=== PATIENT | male | born 1975 | race Caucasian/White ===

== ENCOUNTER 2017-09-18 07:39 | Inpatient (IN) | payer BC ==
[2017-09-18] MEDS ORDERED: SODIUM CHLORIDE 0.9% 500 ML IV STA (08:13)
[2017-09-18] MEDS ORDERED: ONDANSETRON 4 MG/2 ML VIAL IVP STA (08:21)
[2017-09-18] MEDS ORDERED: DICYCLOMINE 20 MG TAB PO STA (08:21)
[2017-09-18] MEDS ORDERED: PANTOPRAZOLE 40 MG/10 ML VIAL IVP STA (08:21)
[2017-09-18 08:40] LABS: Basophils % (A) 0 %; CH 32.2; CHCM 35.3; Eosinophils # (A) 0.1 k/uL (0-0.7); Eosinophils % (A) 0 %; HCT 49.5 % (39.0-53.0); HDW 2.59; HGB 17.3 gm/dL (13.0-17.5); Luc # (Auto) 0.15; Luc % (Auto) 1; Lymphocytes # (A) 1.8 k/uL (1.0-4.8); Lymphocytes % (A) 11 %; MCH 32.1 pg (25.0-35.0); MCV 91.8 fL (80.0-100.0); Mean Platelet Volume 7.7; Monocytes # (A) 0.7 k/uL (0-1.0); Monocytes % (A) 4 %; Neutrophils # (A) 13.3 k/uL (1.3-7.7); Neutrophils % (A) 83 %; RBC 5.39 m/uL (4.30-5.90); RDW 13.3 % (11.5-15.5); WBC (Perox) 16.06
[2017-09-18 08:42] LABS: Appearance,Urine Clear (Clear); Bilirubin,Urine Negative (Negative); Glucose,Urine (UA) Negative (Negative); Ketones,Urine 1+ (Negative); Leukocyte Esterase,Urine Negative (Negative); Nitrite,Urine Negative (Negative); Protein,Urine Trace (Negative); Specific Gravity,Urine 1.016 (1.001-1.035); UA Billing (MACRO vs. MICRO) CHEM; Urobilinogen,Urine <2.0 mg/dL (<2.0)
[2017-09-18 08:51] LABS: ALT 76 U/L (21-72); AST 49 U/L (17-59); Alkaline Phosphatase 66 U/L (38-126); Amylase 248 U/L (30-110); Anion Gap 13 mmol/L; Blood Urea Nitrogen 14 mg/dL (9-20); Carbon Dioxide 19 mmol/L (22-30); Chloride 106 mmol/L (98-107); Glucose 115 mg/dL (74-99); Non-African American GFR(MDRD) >60 (>60 ml/min/1.73 sqM); Sodium 138 mmol/L (137-145); Total Bilirubin 0.9 mg/dL (0.2-1.3)
--- NOTE | 2017-09-18 08:54 | XR ---
EXAMINATION TYPE: XR chest 2V DATE OF EXAM: 09/18/2017 COMPARISON: Prior chest x-ray 06/15/2016 HISTORY: Abdominal pain TECHNIQUE: Frontal and lateral views of the chest are obtained. FINDINGS: There is no focal air space opacity, pleural effusion, or pneumothorax seen. The cardiac silhouette size is within normal limits. The osseous structures are intact. IMPRESSION: No acute cardiopulmonary process.
[2017-09-18] MEDS ORDERED: RX INFO: IV CONTRAST WAS GIVEN 1 EACH MISC MISCELLANE PRN (08:56)
--- NOTE | 2017-09-18 08:56 | XR ---
EXAMINATION TYPE: XR KUB DATE OF EXAM: 09/18/2017 8:50 AM CLINICAL HISTORY: Upper abdominal pain with nausea. TECHNIQUE: Two Upright KUB images of the abdomen are obtained. COMPARISON: None. FINDINGS: There is some paucity of bowel gas. Visualized gas is noted in nondistended small bowel loo ps in the central abdomen. Gas and fecal material is seen in nondistended colon. There is no viscerom egaly, pneumoperitoneum, or abnormal calcification appreciated. The lung bases are clear and the osse ous structures are intact. IMPRESSION: Overall nonobstructive bowel gas pattern.
[2017-09-18] MEDS ORDERED: HYDROmorphone 0.5 MG/0.5 ML SYRINGE IVP STA ×2 (08:59→10:14)
[2017-09-18 09:00] LABS: Potassium 4.5 mmol/L (3.5-5.1)
[2017-09-18] MEDS ORDERED: SODIUM CHLORIDE 0.9% 1,000 ML IV ONE (09:18)
[2017-09-18] MEDS ORDERED: SODIUM CHLORIDE 0.9% 1,000 ML IV SCH (09:30)
--- NOTE | 2017-09-18 09:50 | CT ---
EXAMINATION TYPE: CT abdomen pelvis w con DATE OF EXAM: 09/18/2017 COMPARISON: NONE HISTORY: Umbilical pain CT DLP: 697.7 mGycm, Automated Exposure Control for Dose Reduction was Utilized. CONTRAST: CT scan of the abdomen and pelvis is performed with limited oral and with IV Contrast, patient inject ed with 100 mL of Omnipaque 300. FINDINGS: LUNG BASES: No significant abnormality is appreciated. LIVER/GB: Liver is diffusely hypodense suggesting fatty infiltration however this can be confirmed wi th follow-up ultrasound if desired. PANCREAS: No significant abnormality is seen. SPLEEN: There is 8mm splenule anteriorly in the splenic hilum on axial image 29. ADRENALS: No significant abnormality is seen. KIDNEYS: No significant abnormality is seen. BOWEL: Evaluation of bowel is suboptimal secondary to lack of enteric contrast. Some limited oral con trast is seen in nondistended small bowel loops in the right midabdomen. No suspicious small or large bowel dilatation is present. There is mild wall thickening in the transverse colon extending into le ft colon and proximal sigmoid colon. Some diverticula are seen in the proximal sigmoid colon without surrounding inflammatory change. There is mild wall thickening in distal sigmoid colon extending to r ectum. Mild wall thickening at level of terminal ileum is felt present. PROSTATE/SEMINAL VESICLES: A few scattered pelvic phleboliths are seen. LYMPH NODES: No greater than 1cm abdominal or pelvic lymph nodes are appreciated. OSSEOUS STRUCTURES: There is minimal multilevel spurring in the visualized spine. OTHER: No significant additional abnormality is seen. IMPRESSION: No bowel obstruction is seen. Possible multifocal colitis and/or enteritis at level of te rminal ileum. Differential includes infectious and inflammatory etiologies, consider Crohn's disease. Clinical correlation advised.
--- NOTE | 2017-09-18 10:12 | ED ---
Abdominal Pain HPI - General Chief Complaint: Abdominal Pain Stated Complaint: Stomach pain Time Seen by Provider: 09/18/17 08:12 Source: patient, RN notes reviewed Mode of arrival: wheelchair Limitations: no limitations - History of Present Illness Initial Comments: 41-year-old male presents emergency Department with chief complaint of abdominal pain. Patient states started 2 days ago. Patient was seen at [facility] because his blood pressure was elevated at time and they ruled out anything cardiac. Patient states that his pain persists. Patient does admit some nausea vomiting and states the pain increased after bowel movement. Patient states that he said a little loose stool but nothing dramatic. Denies any melena or hematochezia. He did try some Pepto-Bismol with no relief of his symptoms. Patient has fever, chills. Patient denies any dysuria hematuria. Patient states that he has no history of IBD or IBS denies any GERD. Patient is not taking any current medications. - Related Data Home Medications Medication Instructions Recorded Confirmed Nitroglycerin Sl Tabs [Nitrostat] 0.4 mg SUBLINGUAL Q5M PRN 09/18/17 09/18/17 Omeprazole 20 mg PO DAILY 09/18/17 09/18/17 Allergies Allergy/AdvReac Type Severity Reaction Status Date / Time No Known Allergies Allergy Verified 09/18/17 07:59 Review of Systems ROS Statement: Those systems with pertinent positive or pertinent negative responses have been documented in the HPI. ROS Other: All systems not noted in ROS Statement are negative. Past Medical History Past Medical History: No Reported History History of Any Multi-Drug Resistant Organisms: None Reported Additional Past Surgical History / Comment(s): vasectomy Past Psychological History: No Psychological Hx Reported Smoking Status: Never smoker Past Alcohol Use History: None Reported Past Drug Use History: Marijuana General Exam Limitations: no limitations General appearance: alert, in no apparent distress Head exam: Present: atraumatic, normocephalic, normal inspection Eye exam: Present: normal appearance, PERRL, EOMI. Absent: scleral icterus, conjunctival injection, periorbital swelling ENT exam: Present: normal exam, normal oropharynx, mucous membranes moist Neck exam: Present: normal inspection. Absent: tenderness, meningismus, lymphadenopathy Respiratory exam: Present: normal lung sounds bilaterally. Absent: respiratory distress, wheezes, rales, rhonchi, stridor Cardiovascular Exam: Present: regular rate, normal rhythm, normal heart sounds. Absent: systolic murmur, diastolic murmur, rubs, gallop, clicks GI/Abdominal exam: Present: soft, tenderness (Moderate epigastric tenderness), normal bowel sounds. Absent: distended, guarding, rebound, rigid Back exam: Absent: CVA tenderness (R), CVA tenderness (L) Skin exam: Present: warm, dry, intact, normal color. Absent: rash Course Vital Signs 09/18/17 07:43 Temperature 97 F L Pulse Rate 86 Respiratory 22 Rate Blood Pressure 177/108 O2 Sat by Pulse 100 Oximetry Medical Decision Making - Lab Data Result diagrams: 09/18/17 08:26 09/18/17 08:26 Lab Results 09/18/17 09/18/17 09/18/17 Range/Units 08:26 08:26 08:26 WBC 16.0 H (3.8-10.6) k/uL RBC 5.39 (4.30-5.90) m/uL Hgb 17.3 (13.0-17.5) gm/dL Hct 49.5 (39.0-53.0) % MCV 91.8 (80.0-100.0) fL MCH 32.1 (25.0-35.0) pg MCHC 35.0 (31.0-37.0) g/dL RDW 13.3 (11.5-15.5) % Plt Count 339 (150-450) k/uL Neutrophils % 83 % Lymphocytes % 11 % Monocytes % 4 % Eosinophils % 0 % Basophils % 0 % Neutrophils # 13.3 H (1.3-7.7) k/uL Lymphocytes # 1.8 (1.0-4.8) k/uL Monocytes # 0.7 (0-1.0) k/uL Eosinophils # 0.1 (0-0.7) k/uL Basophils # 0.0 (0-0.2) k/uL Sodium 138 (137-145) mmol/L Potassium 4.5 (3.5-5.1) mmol/L Chloride 106 (98-107) mmol/L Carbon Dioxide 19 L (22-30) mmol/L Anion Gap 13 mmol/L BUN 14 (9-20) mg/dL Creatinine 0.79 (0.66-1.25) mg/dL Est GFR (MDRD) Af Amer >60 (>60 ml/min/1.73 sqM) Est GFR (MDRD) Non-Af >60 (>60 ml/min/1.73 sqM) Glucose 115 H (74-99) mg/dL Calcium 10.0 (8.4-10.2) mg/dL Total Bilirubin 0.9 (0.2-1.3) mg/dL AST 49 (17-59) U/L ALT 76 H (21-72) U/L Alkaline Phosphatase 66 (38-126) U/L Troponin I <0.012 (0.000-0.034) ng/mL Total Protein 8.0 (6.3-8.2) g/dL Albumin 4.8 (3.5-5.0) g/dL Amylase 248 H (30-110) U/L Lipase 1176 H (23-300) U/L Urine Color Urine Appearance (Clear) Urine pH (5.0-8.0) Ur Specific [place] (1.001-1.035) Urine Protein (Negative) Urine Glucose (UA) (Negative) Urine Ketones (Negative) Urine Blood (Negative) Urine Nitrite (Negative) Urine Bilirubin (Negative) Urine Urobilinogen (<2.0) mg/dL Ur Leukocyte Esterase (Negative) 09/18/17 Range/Units 08:26 WBC (3.8-10.6) k/uL RBC (4.30-5.90) m/uL Hgb (13.0-17.5) gm/dL Hct (39.0-53.0) % MCV (80.0-100.0) fL MCH (25.0-35.0) pg MCHC (31.0-37.0) g/dL RDW (11.5-15.5) % Plt Count (150-450) k/uL Neutrophils % % Lymphocytes % % Monocytes % % Eosinophils % % Basophils % % Neutrophils # (1.3-7.7) k/uL Lymphocytes # (1.0-4.8) k/uL Monocytes # (0-1.0) k/uL Eosinophils # (0-0.7) k/uL Basophils # (0-0.2) k/uL Sodium (137-145) mmol/L Potassium (3.5-5.1) mmol/L Chloride (98-107) mmol/L Carbon Dioxide (22-30) mmol/L Anion Gap mmol/L BUN (9-20) mg/dL Creatinine (0.66-1.25) mg/dL Est GFR (MDRD) Af Amer (>60 ml/min/1.73 sqM) Est GFR (MDRD) Non-Af (>60 ml/min/1.73 sqM) Glucose (74-99) mg/dL Calcium (8.4-10.2) mg/dL Total Bilirubin (0.2-1.3) mg/dL AST (17-59) U/L ALT (21-72) U/L Alkaline Phosphatase (38-126) U/L Troponin I (0.000-0.034) ng/mL Total Protein (6.3-8.2) g/dL Albumin (3.5-5.0) g/dL Amylase (30-110) U/L Lipase (23-300) U/L Urine Color Yellow Urine Appearance Clear (Clear) Urine pH 8.0 (5.0-8.0) Ur Specific [place] 1.016 (1.001-1.035) Urine Protein Trace H (Negative) Urine Glucose (UA) Negative (Negative) Urine Ketones 1+ H (Negative) Urine Blood Negative (Negative) Urine Nitrite Negative (Negative) Urine Bilirubin Negative (Negative) Urine Urobilinogen <2.0 (<2.0) mg/dL Ur Leukocyte Esterase Negative (Negative) Disposition Clinical Impression: Acute pancreatitis, Colitis Disposition: ADMITTED IP TO THIS [facility] Condition: Stable Referrals: None,Stated [Primary Care Provider] - 1-2 days
[2017-09-18] MEDS ORDERED: HYDROmorphone 0.5 MG/0.5 ML SYRINGE IVP PRN (10:13)
[2017-09-18] MEDS ORDERED: NALOXONE 0.4 MG/ML 1 ML VIAL IV PRN (10:13)
[2017-09-18] MEDS: SODIUM CHLORIDE 0.45% 1,000 ML IV SCH (14:36)
--- NOTE | 2017-09-18 15:05 | US ---
EXAMINATION TYPE: US abdomen limited DATE OF EXAM: 09/18/2017 COMPARISON: CT abdomen and pelvis earlier today. CLINICAL HISTORY: pancreatitis. Patient stated had epigastric pain yesterday. EXAM MEASUREMENTS: Liver Length: 15.4 cm Gallbladder Wall: 0.2 cm CBD: 0.5 cm Right Kidney: 11.1 x 5.5 x 5.4 cm Pancreas: hyperechoic; no masses seen Liver: fatty as is hyperechoic to right renal cortex; attenuated posteriorly Gallbladder: wnl Evidence for sonographic Gonzalez's sign: No CBD: wnl Right Kidney: wnl Heterogeneous hyperechoic appearance of liver consistent with diffuse fatty infiltration is redemonst rated. Visualized pancreas appears unremarkable on ultrasound which correlates with recent CT. IMPRESSION: No ultrasound evidence for complication related to acute pancreatitis which correlates wi th recent CT. Marked fatty infiltration of liver is redemonstrated.
--- NOTE | 2017-09-18 15:34 | P.HPIM ---
History of Present Illness patient came in with complaints of the epigastric abdominal pain tenderness, denied any significant history of all call abuse did drink alcohol over the weekend. Patient is undergoing ultrasound of the abdomen triglycerides are being tested as wellthe patient is found to have elevated lipase admitted for IV fluids and and severe pancreatitis. Patient is on omeprazole at home patient started having symptoms on Friday used Pepto-Bismol with improvement in his symptoms patient denied any fever, chills, nausea, vomiting, lightheadedness shortness of breath dysuria. also complaining of multiple episodes of nausea vomiting. Review of Systems REVIEW OF SYSTEMS: CONSTITUTIONAL: No fever, no malaise, no fatigue. HEENT: No recent visual problems or hearing problems. Denied any sore throat. CARDIOVASCULAR: No chest pain, orthopnea, PND, no palpitations, no syncope. PULMONARY: No shortness of breath, no cough, no hemoptysis. GASTROINTESTINAL:as mentioned in HPI NEUROLOGICAL: No headaches, no weakness, no numbness. HEMATOLOGICAL: Denies any bleeding or petechiae. GENITOURINARY: Denies any burning micturition, frequency, or urgency. MUSCULOSKELETAL/RHEUMATOLOGICAL: Denies any joint pain, swelling, or any muscle pain. ENDOCRINE: Denies any polyuria or polydipsia. The rest of the 14-point review of systems is negative. Past Medical History Past Medical History: No Reported History History of Any Multi-Drug Resistant Organisms: None Reported Additional Past Surgical History / Comment(s): vasectomy Past Anesthesia/Blood Transfusion Reactions: No Reported Reaction Past Psychological History: No Psychological Hx Reported Smoking Status: Never smoker Past Alcohol Use History: Occasional Past Drug Use History: Marijuana - Past Family History Father Family Medical History: Myocardial Infarction ([place]) Mother Family Medical History: No Reported History Additional Family Medical History / Comment(s): MOM'S DAD HAD ESOPHAGUS CANCER Medications and Allergies Home Medications Medication Instructions Recorded Confirmed Type Nitroglycerin Sl Tabs [Nitrostat] 0.4 mg SUBLINGUAL Q5M PRN 09/18/17 09/18/17 History Omeprazole 20 mg PO DAILY 09/18/17 09/18/17 History Allergies Allergy/AdvReac Type Severity Reaction Status Date / Time No Known Allergies Allergy Verified 09/18/17 07:59 Physical Exam Vitals: Vital Signs Temp Pulse Pulse Resp BP BP Pulse Ox 09/18/17 15:00 97.1 F L 68 16 146/79 96 09/18/17 12:07 16 09/18/17 11:40 99.0 F 69 16 126/80 95 09/18/17 10:58 139/81 09/18/17 10:44 56 L 16 164/101 99 09/18/17 07:43 97 F L 86 22 177/108 100 Intake and Output 09/18/17 09/18/17 09/18/17 06:59 14:59 22:59 Intake Total 1100 Balance 1100 Intake: IV 300 Sodium Chloride 0.9% 1, 300 000 ml @ 100 mls/hr IV . Q10H [facility] Rx#:[id number] Amount of Fluid Infused ( 800 ml) Other: Weight 81.647 kg Patient Weight 09/19/17 06:59 Weight 81.647 kg PHYSICAL EXAMINATION: GENERAL: The patient is alert and oriented x3, not in any acute distress. Well developed, well nourished. HEENT: Pupils are round and equally reacting to light. EOMI. No scleral icterus. No conjunctival pallor. Normocephalic, atraumatic. No pharyngeal erythema. No thyromegaly. CARDIOVASCULAR: S1 and S2 present. No murmurs, rubs, or gallops. PULMONARY: Chest is clear to auscultation, no wheezing or crackles. ABDOMEN: Soft, he minimal epigastric abdominal tenderness was appreciated. nondistended, normoactive bowel sounds. No palpable organomegaly. MUSCULOSKELETAL: No joint swelling or deformity. EXTREMITIES: No cyanosis, clubbing, or pedal edema. NEUROLOGICAL: Gross neurological examination did not reveal any focal deficits. SKIN: No rashes. Results CBC & Chem 7: 09/18/17 08:26 09/18/17 08:26 Labs: Abnormal Lab Results - Last 24 Hours (Table) 09/18/17 09/18/17 09/18/17 Range/Units 08:26 08:26 08:26 WBC 16.0 H (3.8-10.6) k/uL Neutrophils # 13.3 H (1.3-7.7) k/uL Carbon Dioxide 19 L (22-30) mmol/L Glucose 115 H (74-99) mg/dL ALT 76 H (21-72) U/L Amylase 248 H (30-110) U/L Lipase 1176 H (23-300) U/L Urine Protein Trace H (Negative) Urine Ketones 1+ H (Negative) Thrombosis Risk Factor Assmnt - Choose All That Apply Any of the Below Risk Factors Present?: Yes Each Factor Represents 1 point: Medical pt on bed rest Other Risk Factors: No Other congenital or acquired thrombophilia - If yes, enter type in comment: No Thrombosis Risk Factor Assessment Total Risk Factor Score: 1 Thrombosis Risk Factor Assessment Level: Low Risk Assessment and Plan Plan: #1 acute pancreatitis: Etiology is not clear at this point of time patient is not an alcoholic obtaining an ultrasound of the gallbladder looking for gallstones contributing to pancreatitis. Patient will be continued on IV fluids until was switched to half-normal saline because of his acute anemia. #2 leukocytosis reactive secondary to pancreatitis. #3 non-anion gap metabolic acidosis secondary to hyperchloremia from IV fluids which are being switched as mentioned above. #4 gastroesophageal reflux disease for which patient will be continued on proton pump inhibitor
[2017-09-18] MEDS: HYDROmorphone 1 MG/ML 1 ML SYRINGE IVP PRN ×3 (15:36→21:30)
--- NOTE | 2017-09-18 17:24 | P.CONS ---
History of Present Illness - Reason for Consult Consult date: 09/18/17 Pancreatitis, colitis Requesting physician: Tio Quinn - History of Present Illness Consult requested for pancreatitis and colitis. 41-year-old male no significant past medical history admitted with acute epigastric upper abdominal nonradiating abdominal pain that started Friday with elevated BP. He was sent to [facility] from urgent care with concern he could be having a heart attack. Patient states cardiac disease "runs in the family". Gallbladder disease was ruled out. He was discharged unclear of etiology unsure if pancreatic enzymes were evaluated however pain returned yesterday. White count 16. LFTs within normal limits with the exception of ALT 76. Amylase 240. Lipase 1176. MCV 91. Platelets 339. Hemoglobin 17.3. No history of pancreatitis. No ETOH abuse however he did drink several shots of liquor and beer this past Friday but felt fine Friday. No changes in medications. Denies changes in the color of his urine or stool. CT abdomen and pelvis suboptimal lack of oral contrast reported no suspicious small or large bowel dilation. Mild wall thickening in the transverse colon extending into the left colon and proximal sigmoid colon. Some diverticula are seen in the proximal sigmoid colon without inflammatory changes. Mild wall thickening at level of terminal ileum is felt present. No significant abnormality seen in the pancreas. Fatty infiltration of liver. No history of colitis or diarrhea. Denies blood in stool or emesis. No weight loss. No personal or familial history of autoimmune disease. Review of Systems Constitutional: Denies fever, chills, sweats, weight gain, or loss. HEENT: Negative for migraines, blurred vision or loss, earaches, drainage, tinnitus, oral mucosal lesions, dysphagia, or odynophagia. Cardiac: Negative for chest pain, arrhythmias, or palpitation. Respiratory: Negative for shortness of breath, hemoptysis, cough, or sputum production. Gastrointestinal: See HPI for pertinent findings. Genitourinary: Negative for hematuria, urgency, frequency, polyuria, dysuria, or penile discharge. Musculoskeletal: Negative for muscle aches, swelling, arthritis, and arthralgias. Neurologic: Negative for stroke or TIA. Endocrine: Negative for thyroid problems. Skin: Negative for rash or itching. Psychiatric: Negative history for depression and anxiety Past Medical History Past Medical History: No Reported History History of Any Multi-Drug Resistant Organisms: None Reported Additional Past Surgical History / Comment(s): vasectomy Past Anesthesia/Blood Transfusion Reactions: No Reported Reaction Past Psychological History: No Psychological Hx Reported Smoking Status: Never smoker Past Alcohol Use History: Occasional Past Drug Use History: Marijuana - Past Family History Father Family Medical History: Myocardial Infarction ([place]) Mother Family Medical History: No Reported History Additional Family Medical History / Comment(s): MOM'S DAD HAD ESOPHAGUS CANCER Medications and Allergies Home Medications Medication Instructions Recorded Confirmed Type Nitroglycerin Sl Tabs [Nitrostat] 0.4 mg SUBLINGUAL Q5M PRN 09/18/17 09/18/17 History Omeprazole 20 mg PO DAILY 09/18/17 09/18/17 History Allergies Allergy/AdvReac Type Severity Reaction Status Date / Time No Known Allergies Allergy Verified 09/18/17 07:59 Physical Exam Vitals: Vital Signs Temp Pulse Pulse Resp BP BP Pulse Ox 09/18/17 12:07 16 09/18/17 11:40 99.0 F 69 16 126/80 95 09/18/17 10:58 139/81 09/18/17 10:44 56 L 16 164/101 99 09/18/17 07:43 97 F L 86 22 177/108 100 Intake and Output 09/17/17 09/18/17 09/18/17 22:59 06:59 14:59 Intake Total 800 Balance 800 Intake: Amount of Fluid Infused ( 800 ml) Other: Weight 81.647 kg Patient Weight 09/19/17 06:59 Weight 81.647 kg General appearance: The patient is alert, oriented, in no acute distress. HET: Head is normocephalic and atraumatic. Pupils are equal and reactive. Oropharynx is clear without lesions. Neck: Supple without lymphadenopathy. Trachea midline. Heart: S1 S2. Regular rate and rhythm. Lungs: No crackles or wheezes are heard. Abdomen: Soft, nontender, nondistended with bowel sounds. No peritoneal signs. No palpable organomegaly or masses. Extremities: Normal skin color and turgor. No cyanosis, rash, ulceration, clubbing, or edema. Radial and pedal pulses are 2/4 bilaterally. Neurological: No focal deficits. Strength and sensation are grossly intact. Results CBC & Chem 7: 09/18/17 08:26 09/18/17 08:26 Labs: Abnormal Lab Results - Last 24 Hours (Table) 09/18/17 09/18/17 09/18/17 Range/Units 08:26 08:26 08:26 WBC 16.0 H (3.8-10.6) k/uL Neutrophils # 13.3 H (1.3-7.7) k/uL Carbon Dioxide 19 L (22-30) mmol/L Glucose 115 H (74-99) mg/dL ALT 76 H (21-72) U/L Amylase 248 H (30-110) U/L Lipase 1176 H (23-300) U/L Urine Protein Trace H (Negative) Urine Ketones 1+ H (Negative) CT scan - abdomen: report reviewed (Dr. Reza) Assessment and Plan (1) Acute pancreatitis Narrative/Plan: First episode etiology unclear possible alcohol related Current Visit: Yes Status: Acute Code(s): K85.90 - ACUTE PANCREATITIS WITHOUT NECROSIS OR INFECTION, UNSP SNOMED Code(s): 477543960 (2) Colitis Narrative/Plan: Nonspecific clinical symptoms not consistent with colitis. Denies lower abdominal pain, bloody stools or diarrhea. No history of bowel problems. CT without contrast suboptimal. Current Visit: Yes Status: Acute Code(s): K52.9 - NONINFECTIVE GASTROENTERITIS AND COLITIS, UNSPECIFIED SNOMED Code(s): 07126958 Plan: 1. Check triglyceride level. Repeat pancreatic enzymes in a.m. Nothing by mouth except ice chips popsicles advance slowly. Case discussed with Dr. Quinn. 2. Ultrasound abdomen today. Will follow closely. Thank you for this kind referral and the opportunity to participate in the care of your patient. This consultation was discussed with Dr. Reza. The impression and plan of care have been directed as dictated.
[2017-09-18] MEDS: ONDANSETRON 4 MG/2 ML VIAL IVP PRN (21:43)
[2017-09-19] MEDS: HYDROmorphone 1 MG/ML 1 ML SYRINGE IVP PRN ×3 (01:33→07:52)
[2017-09-19] MEDS: SODIUM CHLORIDE 0.45% 1,000 ML IV SCH ×2 (04:40→11:11)
[2017-09-19 07:24] VITALS: RESP 18
[2017-09-19 07:31] LABS: Basophils % (A) 0 %; CH 32.5; CHCM 33.9; Eosinophils # (A) 0.1 k/uL (0-0.7); Eosinophils % (A) 1 %; HCT 51.5 % (39.0-53.0); HDW 2.55; HGB 16.8 gm/dL (13.0-17.5); Luc # (Auto) 0.14; Luc % (Auto) 2; Lymphocytes # (A) 1.9 k/uL (1.0-4.8); Lymphocytes % (A) 20 %; MCH 31.5 pg (25.0-35.0); MCHC 32.7 g/dL (31.0-37.0); MCV 96.4 fL (80.0-100.0); Mean Platelet Volume 7.4; Monocytes # (A) 0.6 k/uL (0-1.0); Monocytes % (A) 7 %; Neutrophils # (A) 6.5 k/uL (1.3-7.7); Neutrophils % (A) 71 %; RBC 5.34 m/uL (4.30-5.90); RDW 13.2 % (11.5-15.5); WBC 9.2 k/uL (3.8-10.6); WBC (Perox) 9.06
[2017-09-19 07:52] LABS: ALT 76 U/L (21-72); AST 40 U/L (17-59); Alkaline Phosphatase 52 U/L (38-126); Anion Gap 10 mmol/L; Blood Urea Nitrogen 10 mg/dL (9-20); Calcium 9.2 mg/dL (8.4-10.2); Carbon Dioxide 26 mmol/L (22-30); Chloride 103 mmol/L (98-107); Glucose 86 mg/dL (74-99); Non-African American GFR(MDRD) >60 (>60 ml/min/1.73 sqM); Sodium 139 mmol/L (137-145); Total Bilirubin 0.7 mg/dL (0.2-1.3); Total Protein 7.3 g/dL (6.3-8.2)
[2017-09-19] MEDS: ONDANSETRON 4 MG/2 ML VIAL IVP PRN (08:49)
[2017-09-19] MEDS ORDERED: PANTOPRAZOLE 40 MG/10 ML VIAL IVP SCH (09:00)
[2017-09-19 14:30] VITALS: BP 149/76; PULSE 64; TEMP 97.2
--- NOTE | 2017-09-19 15:09 | P.DS ---
Providers Date of admission: 09/18/17 10:13 Expected date of discharge: 09/19/17 Attending physician: Tio Quinn Consults: 09/18/17 10:13 Consult Physician Stat Consulting Provider: Zahraa Reza Consult Reason/Comments: colitis, pancreatitis Do you want consulting provider notified?: Yes Primary care physician: Stated None Dr. Coppola Hospital Course: Final Diagnoses: #1 acute pancreatitis: Etiology is not clear at this point of time patient is not an alcoholic , ultrasound did not report gallstones #2 leukocytosis reactive secondary to pancreatitis, resolved. #3 gastroesophageal reflux disease Hospital course: This is a 41-year-old gentleman admitted with epigastric/ abdominal pain and tenderness, denied any significant history of alcohol abuse, but did consume alcohol over the prior weekend. LFTs within normal limits with the exception of ALT 76, amylase 240,lipase,1176. CT abdomen and pelvis suboptimal lack of oral contrast reported no suspicious small or large bowel dilation. Mild wall thickening in the transverse colon extending into the left colon and proximal sigmoid colon. Some diverticula are seen in the proximal sigmoid colon without inflammatory changes. Mild wall thickening at level of terminal ileum is felt present. No significant abnormality seen in the pancreas. Fatty infiltration of liver.Ultrasound did not report any gallstones. Evaluated by GI. Maintained on IV fluid hydration. Significant clinical improvement, lipase normalized. tolerating clear liquid diet with no nausea or vomiting. Diet advanced and if tolerating, will discharge home in a stable condition with guarded prognosis. The impression and plan of care has been dictated as directed. : I performed a history and examination of this patient, discussed the same with the dictator. I agree with the dictator's note ,documented as a scribe. Any additional findings or plans will be noted. Patient Condition at Discharge: Stable Plan - Discharge Summary Discharge Rx Participant: Yes New Discharge Prescriptions: Continue Nitroglycerin Sl Tabs [Nitrostat] 0.4 mg SUBLINGUAL Q5M PRN PRN Reason: Chest Pain Omeprazole 20 mg PO DAILY Discharge Medication List Nitroglycerin Sl Tabs [Nitrostat] 0.4 mg SUBLINGUAL Q5M PRN 09/18/17 [History] Omeprazole 20 mg PO DAILY 09/18/17 [History] Follow up Appointment(s)/Referral(s): Zahraa Reza MD [STAFF PHYSICIAN] - As Needed Kylah Coppola DO [REFERRING] - 3 Days Activity/Diet/Wound Care/Special Instructions: Diet: Soft low fat Activity: Limited until follow up
== END 2017-09-19 17:18 | disposition home or self-care (01) | DRG 439 ==
LOC: EC 07:39 → 4MS4W 10:13
PROVIDERS: ADMIT Internal Medicine; ATTEND Internal Medicine
DX: K85.90 Acute pancreatitis without necrosis or infection, unspecified (principal); E87.2 Acidosis; E87.8 Other disorders of electrolyte and fluid balance, not elsewhere classified; K21.9 Gastro-esophageal reflux disease without esophagitis; K52.9 Noninfective gastroenteritis and colitis, unspecified; K57.30 Diverticulosis of large intestine without perforation or abscess without bleeding; K76.0 Fatty (change of) liver, not elsewhere classified; Z79.899 Other long term (current) drug therapy; Z80.0 Family history of malignant neoplasm of digestive organs; Z82.49 Family history of ischemic heart disease and other diseases of the circulatory system
CPT/HCPCS: 36415; 71020; 74000; 74177; 76705; 80053; 81003; 82150; 83690; 84478; 84484; 85025; 93005; 96361; 96374; 96375; 96376; 99285

== ENCOUNTER 2017-12-26 14:38 | Emergency (ER) | payer BC ==
[2017-12-26] MEDS ORDERED: SODIUM CHLORIDE 0.9% 1,000 ML IV STA (15:18)
[2017-12-26] MEDS ORDERED: PANTOPRAZOLE 40 MG/10 ML VIAL IVP STA (15:18)
[2017-12-26] MEDS ORDERED: ONDANSETRON 4 MG/2 ML VIAL IVP STA (15:18)
[2017-12-26] MEDS ORDERED: HYDROmorphone 2 MG/ML 1 ML SYRINGE IVP STA (15:18)
[2017-12-26] MEDS ORDERED: SODIUM CHLORIDE 0.9% 2,000 ML IV STA (15:18)
[2017-12-26 15:50] LABS: Basophils % (A) 0 %; Eosinophils # (A) 0.1 k/uL (0-0.7); Eosinophils % (A) 0 %; HCT 52.6 % (39.0-53.0); HGB 17.3 gm/dL (13.0-17.5); Lymphocytes # (A) 0.9 k/uL (1.0-4.8); Lymphocytes % (A) 6 %; MCHC 32.9 g/dL (31.0-37.0); MCV 94.3 fL (80.0-100.0); Mean Platelet Volume 7.2; Monocytes # (A) 0.3 k/uL (0-1.0); Monocytes % (A) 2 %; Neutrophils # (A) 13.5 k/uL (1.3-7.7); Neutrophils % (A) 91 %; Platelet Count 330 k/uL (150-450); RBC 5.58 m/uL (4.30-5.90); RDW 11.9 % (11.5-15.5); WBC 14.8 k/uL (3.8-10.6)
[2017-12-26 16:01] LABS: ALT 89 U/L (21-72); AST 51 U/L (17-59); Albumin 5.1 g/dL (3.5-5.0); Alkaline Phosphatase 76 U/L (38-126); Amylase 71 U/L (30-110); Anion Gap 14 mmol/L; Blood Urea Nitrogen 12 mg/dL (9-20); Calcium 10.9 mg/dL (8.4-10.2); Carbon Dioxide 25 mmol/L (22-30); Chloride 100 mmol/L (98-107); Glucose 129 mg/dL (74-99); Lipase 110 U/L (23-300); Potassium 4.7 mmol/L (3.5-5.1); Sodium 139 mmol/L (137-145); Total Bilirubin 0.8 mg/dL (0.2-1.3); Total Protein 8.3 g/dL (6.3-8.2)
--- NOTE | 2017-12-26 16:16 | ED ---
Abdominal Pain HPI - General Chief Complaint: Abdominal Pain Stated Complaint: Abd pain Time Seen by Provider: 12/26/17 15:13 Source: patient Mode of arrival: ambulatory Limitations: no limitations - History of Present Illness Initial Comments: 42 years old male who has a history of pancreatitis presents with the epigastric pain pain started down a pain been there for last 24 hours also tender in the right upper quadrant area and the left upper quadrant area he denies any history of gallstones side he denies any use of alcohol with the last 24 hours he threw up 3 times this morning and I am still nauseous every time he tried any fluid or any fluids it came right up. Otherwise is pretty healthy no history of heart disease no history diabetes or hypertension. Review of system unremarkable for any headache neck Stiffness no chest pain or shortness of breath doesn't abdominal pain him a no frequency or dysuria urgency dysuria no symptoms of TIA or CVA - Related Data Previous Rx's Medication Instructions Recorded HYDROmorphone [Dilaudid] 1 mg PO Q8H PRN #15 tab 12/26/17 Metoclopramide [Reglan] 10 mg PO TID PRN #15 tab 12/26/17 Pantoprazole [Protonix] 40 mg PO DAILY #30 tablet. 12/26/17 Allergies Allergy/AdvReac Type Severity Reaction Status Date / Time No Known Allergies Allergy Verified 12/26/17 15:38 Review of Systems ROS Statement: Those systems with pertinent positive or pertinent negative responses have been documented in the HPI. ROS Other: All systems not noted in ROS Statement are negative. Past Medical History Past Medical History: No Reported History Additional Past Medical History / Comment(s): pancreatitis History of Any Multi-Drug Resistant Organisms: None Reported Additional Past Surgical History / Comment(s): vasectomy Past Anesthesia/Blood Transfusion Reactions: No Reported Reaction Past Psychological History: No Psychological Hx Reported Smoking Status: Never smoker Past Alcohol Use History: Occasional Past Drug Use History: Marijuana - Past Family History Father Family Medical History: Myocardial Infarction ([place]) Mother Family Medical History: No Reported History Additional Family Medical History / Comment(s): MOM'S DAD HAD ESOPHAGUS CANCER General Exam - General Exam Comments Initial Comments: General: The patient is awake and alert, in no distress, and does not appear acutely ill. Skin: Skin is warm and dry and no rashes or lesions are noted. Eye: Pupils are equal, round and reactive to light, extra-ocular movements are intact; there is normal conjunctiva bilaterally. Ears, nose, mouth and throat: There are moist mucous membranes and no oral lesions. Neck: The neck is supple, there is no tenderness or JVD. Cardiovascular: There is a regular rate and rhythm. No murmur, rub or gallop is appreciated. Respiratory: To auscultation bilateral, no wheezing no rhonchi no distress respiratory rodrigez noticed Gastrointestinal: very tender in epigastric area and some tenderness in the right upper quadrant and left upper quadrant area positive bowel sounds no guarding no rebounds Back: There is no tenderness to palpation in the midline. There is no obvious deformity. Musculoskeletal: Normal ROM, no tenderness, There is no pedal edema. There is no calf tenderness or swelling. No cords were appreciated. Neurological: CN II-XII intact, Cranial nerves III through XII are intact. There are no obvious motor or sensory deficits. Coordination appears grossly intact. Speech is normal. Psychiatric: Cooperative, appropriate mood & affect, normal judgment. Limitations: no limitations Course Vital Signs 12/26/17 15:05 Temperature 98.3 F Pulse Rate 60 Respiratory 18 Rate Blood Pressure 172/102 O2 Sat by Pulse 100 Oximetry The patient was reviewed at 1700 findings are discussed with the patient IS UNREMARKABLE NO GALLSTONES NOTICED PANCREAS DIDN'T SHOW ANY PATHOLOGY WELL AMYLASE LIPASE ARE UNREMARKABLE THE WHITE COUNT IS ELEVATED MOST PROBABLY FROM MOM MULTIPLE EMESIS HE HAD AT HOME PAIN CONTROL HIS ACCIDENT AT THIS POINT HE IS PAIN-FREE UP 97 CM HOME WITH SOME OMEPRAZOLE R SHUNGNAK OVER 40 MG ONCE DAILY FOR POSSIBLE GASTRITIS OR DUODENITIS AND ESOPHAGITIS A AND DILAUDID 1 MG 3 TIMES A DAY NEEDED JUST 10 TABLETS HE IS CURRENTLY GONE HOME ON REGLAN 10 MG IV EVERY 6 WHEN NECESSARY #10 IS ADVISED TO COME BACK IF SYMPTOMS GET WORSE IS ALSO ADVISED TO STICK WITH THE LOW-FAT DIET FOR NEXT COUPLE DAYS PLENTY OF FLUIDS LIGHT, RENETTA FRENCH, 7-UP OR Medical Decision Making - Lab Data Result diagrams: 12/26/17 15:27 12/26/17 15:27 Lab Results 12/26/17 12/26/17 Range/Units 15:27 15:27 WBC 14.8 H (3.8-10.6) k/uL RBC 5.58 (4.30-5.90) m/uL Hgb 17.3 (13.0-17.5) gm/dL Hct 52.6 (39.0-53.0) % MCV 94.3 (80.0-100.0) fL MCH 31.0 (25.0-35.0) pg MCHC 32.9 (31.0-37.0) g/dL RDW 11.9 (11.5-15.5) % Plt Count 330 (150-450) k/uL Neutrophils % 91 % Lymphocytes % 6 % Monocytes % 2 % Eosinophils % 0 % Basophils % 0 % Neutrophils # 13.5 H (1.3-7.7) k/uL Lymphocytes # 0.9 L (1.0-4.8) k/uL Monocytes # 0.3 (0-1.0) k/uL Eosinophils # 0.1 (0-0.7) k/uL Basophils # 0.0 (0-0.2) k/uL Sodium 139 (137-145) mmol/L Potassium 4.7 (3.5-5.1) mmol/L Chloride 100 (98-107) mmol/L Carbon Dioxide 25 (22-30) mmol/L Anion Gap 14 mmol/L BUN 12 (9-20) mg/dL Creatinine 0.78 (0.66-1.25) mg/dL Est GFR (MDRD) Af Amer >60 (>60 ml/min/1.73 sqM) Est GFR (MDRD) Non-Af >60 (>60 ml/min/1.73 sqM) Glucose 129 H (74-99) mg/dL Calcium 10.9 H (8.4-10.2) mg/dL Total Bilirubin 0.8 (0.2-1.3) mg/dL AST 51 (17-59) U/L ALT 89 H (21-72) U/L Alkaline Phosphatase 76 (38-126) U/L Total Protein 8.3 H (6.3-8.2) g/dL Albumin 5.1 H (3.5-5.0) g/dL Amylase 71 (30-110) U/L Lipase 110 (23-300) U/L Disposition Clinical Impression: Abdominal pain, History of pancreatitis Disposition: HOME SELF-CARE Condition: Good Instructions: Abdominal Pain (ED) Prescriptions: HYDROmorphone [Dilaudid] 1 mg PO Q8H PRN #15 tab PRN Reason: Pain Metoclopramide [Reglan] 10 mg PO TID PRN #15 tab PRN Reason: Nausea Pantoprazole [Protonix] 40 mg PO DAILY #30 tablet. Referrals: None,Stated [Primary Care Provider] - 1-2 days
--- NOTE | 2017-12-26 16:18 | XR ---
EXAMINATION TYPE: XR chest 1V portable DATE OF EXAM: 12/26/2017 COMPARISON: 09/18/2017 INDICATION: Abdomen pain TECHNIQUE: Single frontal view of the chest is obtained. FINDINGS: The heart size is normal. The pulmonary vasculature is normal. The lungs are clear. No free air is under the diaphragm. IMPRESSION: 1. No acute pulmonary process.
--- NOTE | 2017-12-26 16:19 | XR ---
EXAMINATION TYPE: XR abdomen 2V DATE OF EXAM: 12/26/2017 COMPARISON: 09/18/2017 INDICATION: Abdomen pain TECHNIQUE: Single view abdomen upright view FINDINGS: Nonspecific bowel gas pattern is present with air within small bowel loops as well as the colon. No s uspicious air-fluid levels or differential air-fluid levels are present. No free air is present. Psoas margins are normal. No organomegaly is present. IMPRESSION: 1. Nonspecific abdomen.
--- NOTE | 2017-12-26 16:38 | US ---
EXAMINATION TYPE: US abdomen limited DATE OF EXAM: 12/26/2017 COMPARISON: US & CT 09/18/2017 CLINICAL HISTORY: Pain. Epigastric pain EXAM MEASUREMENTS: Liver Length: 15.9 cm Gallbladder Wall: 0.2 cm CBD: 0.3 cm Right Kidney: 10.2 x 6.0 x 4.6 cm Pancreas: Tail obscured by overlying bowel gas, visualized portions appear wnl Liver: Coarse, echogenic echotexture. Gallbladder: wnl Evidence for sonographic Gonzalez's sign: No CBD: wnl as visualized, distal portion obscured by bowel gas Right Kidney: No hydronephrosis or masses seen IMPRESSION: 1. Right upper quadrant ultrasound as visualized is unremarkable.
[2017-12-26] MEDS ORDERED: HYDROmorphone 0.5 MG/0.5 ML SYRINGE IVP STA (16:44)
[2017-12-26 18:06] VITALS: BP 120/80; PULSE 78; RESP 16; TEMP 97.8
== END 2017-12-26 18:05 | disposition home or self-care (01) ==
LOC: EC 14:38
DX: R10.13 Epigastric pain (principal); Z87.19 Personal history of other diseases of the digestive system; R11.0 Nausea
CPT/HCPCS: 36415; 80053; 82150; 83690; 85025; 71045; 74019; 76705; 99284; 96374; 96375 ×2; 96376; 96361 ×2; J1170 ×2; J2405; C9113

== ENCOUNTER 2018-06-16 21:13 | Emergency (ER) | payer BC ==
[2018-06-16 21:25] VITALS: BP 156/99; PULSE 56; RESP 17; TEMP 98.7
[2018-06-16] MEDS ORDERED: METOCLOPRAMIDE 5 MG/ML 2 ML VIAL IVP STA (21:30)
[2018-06-16] MEDS ORDERED: SODIUM CHLORIDE 0.9% 1,000 ML IV STA (21:30)
[2018-06-16] MEDS ORDERED: HYDROmorphone 1 MG/ML 1 ML SYRINGE IVP STA (21:30)
[2018-06-16] MEDS ORDERED: FAMOTIDINE 20 MG/2 ML VIAL IV STA (21:31)
--- NOTE | 2018-06-16 21:33 | ED ---
General Adult HPI - General Chief complaint: Abdominal Pain Stated complaint: ABD PAIN Time Seen by Provider: 06/16/18 21:24 Source: patient, family, EMS, RN notes reviewed Mode of arrival: EMS Limitations: no limitations - History of Present Illness Initial comments: Patient is a pleasant 42-year-old male presenting to the emergency Department with epigastric discomfort. Onset was around 2 PM. Patient has had some associated nausea and some vomiting. Patient did have similar symptoms approximately one year ago associated with pancreatitis. Patient states he does not drink much alcohol. No known gallbladder problems or cholesterol problems. Discomfort is mostly in the epigastric region however does radiate somewhat towards the sides. No back pain. No fevers. Patient states he does feel a little bit constipated however also has had some loose stools. Patient did go to urgent care prior to arrival and patient was recommended to come to emergency department - Related Data Home Medications Medication Instructions Recorded Confirmed Ibuprofen [Motrin Ib] 600 mg PO Q6H PRN 06/16/18 06/16/18 Previous Rx's Medication Instructions Recorded Metoclopramide HCl [Reglan] 10 mg PO Q6HR PRN #15 tablet 06/16/18 Pantoprazole [Protonix] 40 mg PO DAILY #30 tablet. 06/16/18 Allergies Allergy/AdvReac Type Severity Reaction Status Date / Time No Known Allergies Allergy Verified 06/16/18 21:51 Review of Systems ROS Statement: Those systems with pertinent positive or pertinent negative responses have been documented in the HPI. ROS Other: All systems not noted in ROS Statement are negative. Constitutional: Denies: fever Eyes: Denies: eye pain ENT: Denies: ear pain Respiratory: Denies: cough Cardiovascular: Denies: chest pain Endocrine: Denies: fatigue Gastrointestinal: Reports: abdominal pain, nausea, vomiting Genitourinary: Denies: dysuria Musculoskeletal: Denies: back pain Skin: Denies: rash Neurological: Denies: weakness Past Medical History Past Medical History: No Reported History Additional Past Medical History / Comment(s): pancreatitis History of Any Multi-Drug Resistant Organisms: None Reported Additional Past Surgical History / Comment(s): vasectomy Past Anesthesia/Blood Transfusion Reactions: No Reported Reaction Past Psychological History: No Psychological Hx Reported Smoking Status: Never smoker Past Alcohol Use History: Occasional Past Drug Use History: Marijuana - Past Family History Father Family Medical History: Myocardial Infarction ([place]) Mother Family Medical History: No Reported History Additional Family Medical History / Comment(s): MOM'S DAD HAD ESOPHAGUS CANCER General Exam Limitations: no limitations General appearance: alert, in no apparent distress Head exam: Present: atraumatic Eye exam: Present: normal appearance, PERRL ENT exam: Present: normal oropharynx Neck exam: Present: normal inspection Respiratory exam: Present: normal lung sounds bilaterally Cardiovascular Exam: Present: regular rate, normal rhythm Expanded Peripheral pulses: 2+: Dorsalis Pedis (R), Dorsalis Pedis (L) GI/Abdominal exam: Present: soft, tenderness (Moderate epigastric tenderness), guarding (Mild guarding in the epigastric), normal bowel sounds. Absent: distended, rebound, rigid, pulsatile mass Extremities exam: Present: normal inspection Neurological exam: Present: alert Psychiatric exam: Present: normal affect, normal mood Skin exam: Present: normal color Course Vital Signs 06/16/18 21:21 Temperature 98.7 F Pulse Rate 56 L Respiratory 17 Rate Blood Pressure 156/99 O2 Sat by Pulse 100 Oximetry Medical Decision Making - Medical Decision Making Patient reevaluated and resting comfortably in bed. Abdomen soft and nontender. Patient is comfortable with discharge home. Patient and family updated on results and need for follow-up. - Lab Data Result diagrams: 06/16/18 21:30 06/16/18 21:30 Lab Results 06/16/18 06/16/18 06/16/18 Range/Units 21:30 21:30 21:30 WBC 12.6 H (3.8-10.6) k/uL RBC 4.97 (4.30-5.90) m/uL Hgb 16.3 (13.0-17.5) gm/dL Hct 45.8 (39.0-53.0) % MCV 92.1 (80.0-100.0) fL MCH 32.7 (25.0-35.0) pg MCHC 35.5 (31.0-37.0) g/dL RDW 12.6 (11.5-15.5) % Plt Count 311 (150-450) k/uL Neutrophils % 90 % Lymphocytes % 7 % Monocytes % 2 % Eosinophils % 0 % Basophils % 0 % Neutrophils # 11.3 H (1.3-7.7) k/uL Lymphocytes # 0.9 L (1.0-4.8) k/uL Monocytes # 0.3 (0-1.0) k/uL Eosinophils # 0.0 (0-0.7) k/uL Basophils # 0.0 (0-0.2) k/uL PT 10.0 (9.0-12.0) sec INR 1.0 (<1.2) APTT 23.0 (22.0-30.0) sec Sodium 137 (137-145) mmol/L Potassium 4.2 (3.5-5.1) mmol/L Chloride 104 (98-107) mmol/L Carbon Dioxide 19 L (22-30) mmol/L Anion Gap 14 mmol/L BUN 14 (9-20) mg/dL Creatinine 0.82 (0.66-1.25) mg/dL Est GFR (CKD-EPI)AfAm >90 (>60 ml/min/1.73 sqM) Est GFR (CKD-EPI)NonAf >90 (>60 ml/min/1.73 sqM) Glucose 149 H (74-99) mg/dL Calcium 9.8 (8.4-10.2) mg/dL Total Bilirubin 1.0 (0.2-1.3) mg/dL AST 41 (17-59) U/L ALT 62 (21-72) U/L Alkaline Phosphatase 58 (38-126) U/L Total Protein 7.6 (6.3-8.2) g/dL Albumin 4.8 (3.5-5.0) g/dL Amylase 68 (30-110) U/L Lipase 87 (23-300) U/L - Radiology Data Radiology results: report reviewed (Computed tomography scan of the abdomen pelvis shows no acute), image reviewed (Abdominal x-ray shows nonacute abdomen.) Disposition Clinical Impression: Abdominal pain Disposition: HOME SELF-CARE Condition: Stable Instructions: Abdominal Pain (ED) Additional Instructions: Please follow-up with primary care physician and surgeon or reservations manager in the next couple days for recheck. Consider having a scope done. Return for fever, increased pain, vomiting, worsening symptoms or other concerns. Prescriptions: Metoclopramide HCl [Reglan] 10 mg PO Q6HR PRN #15 tablet PRN Reason: Nausea Pantoprazole [Protonix] 40 mg PO DAILY #30 tablet.dr Is patient prescribed a controlled substance at d/c from ED?: No Referrals: Leonard Lua MD [STAFF PHYSICIAN] - 1-2 days Judd White MD [STAFF PHYSICIAN] - 1-2 days Zahraa Reza MD [STAFF PHYSICIAN] - 1-2 days Time of Disposition: 22:59
[2018-06-16 21:48] LABS: Basophils % (A) 0 %; Eosinophils % (A) 0 %; HCT 45.8 % (39.0-53.0); HGB 16.3 gm/dL (13.0-17.5); Lymphocytes # (A) 0.9 k/uL (1.0-4.8); Lymphocytes % (A) 7 %; MCH 32.7 pg (25.0-35.0); MCHC 35.5 g/dL (31.0-37.0); MCV 92.1 fL (80.0-100.0); Mean Platelet Volume 6.9; Monocytes # (A) 0.3 k/uL (0-1.0); Monocytes % (A) 2 %; Neutrophils # (A) 11.3 k/uL (1.3-7.7); Neutrophils % (A) 90 %; Platelet Count 311 k/uL (150-450); RBC 4.97 m/uL (4.30-5.90); RDW 12.6 % (11.5-15.5); WBC 12.6 k/uL (3.8-10.6)
[2018-06-16 21:58] LABS: ALT 62 U/L (21-72); AST 41 U/L (17-59); Albumin 4.8 g/dL (3.5-5.0); Alkaline Phosphatase 58 U/L (38-126); Amylase 68 U/L (30-110); Anion Gap 14 mmol/L; Blood Urea Nitrogen 14 mg/dL (9-20); Calcium 9.8 mg/dL (8.4-10.2); Carbon Dioxide 19 mmol/L (22-30); Chloride 104 mmol/L (98-107); Glucose 149 mg/dL (74-99); Lipase 87 U/L (23-300); Potassium 4.2 mmol/L (3.5-5.1); Sodium 137 mmol/L (137-145); Total Protein 7.6 g/dL (6.3-8.2)
--- NOTE | 2018-06-16 22:17 | XR ---
EXAMINATION TYPE: XR KUB DATE OF EXAM: 06/16/2018 COMPARISON: December 26, 2017 HISTORY: Abdominal pain TECHNIQUE: 2 upright views FINDINGS: Bowel gas pattern is normal. There is no sign of intestinal obstruction or pneumoperitoneum . Fecal pattern is normal. Lung bases are clear. There are no pathologic calcifications. IMPRESSION: Nonacute abdomen. No change.
--- NOTE | 2018-06-16 22:44 | CT ---
EXAMINATION TYPE: CT abdomen pelvis w con DATE OF EXAM: 06/16/2018 COMPARISON: 09/18/2017 HISTORY: Abdominal pain with vomiting, hx of pancreatitis CT DLP: 632.4 mGycm Automated exposure control for dose reduction was used. TECHNIQUE: Helical acquisition of images was performed from the lung bases through the pelvis. CONTRAST: Performed without Oral Contrast and with IV Contrast, patient injected with 100 mL of Isovue 300. FINDINGS: Lung bases are clear. There is no pleural effusion. There is no pericardial effusion. Liver spleen pancreas gallbladder appear normal. Bile ducts are not dilated. There is no adrenal mass. Kidneys show satisfactory contrast opacification. There is no hydronephrosi s. There is no retroperitoneal adenopathy. There is no ascites. Bladder distends smoothly. There is n o intestinal wall thickening. There are no dilated loops. Appendix appears normal. The bony structure s appear intact. IMPRESSION: NEGATIVE CT SCAN OF THE ABDOMEN AND PELVIS. NO EVIDENCE OF PANCREATITIS. NO ADVERSE CHANGE COMPARED T O OLD EXAM.
[2018-06-16 23:36] LABS: Appearance,Urine Clear (Clear); Bilirubin,Urine Negative (Negative); Blood,Urine Negative (Negative); Color,Urine Light Yellow; Glucose,Urine (UA) Negative (Negative); Ketones,Urine 3+ (Negative); Leukocyte Esterase,Urine Negative (Negative); Nitrite,Urine Negative (Negative); Protein,Urine Trace (Negative); Urobilinogen,Urine <2.0 mg/dL (<2.0)
[2018-06-16 23:44] LABS: Specific Gravity,Urine >1.050 (1.001-1.035)
== END 2018-06-16 23:29 | disposition home or self-care (01) ==
LOC: EC 21:13
DX: R10.13 Epigastric pain (principal); R11.2 Nausea with vomiting, unspecified; K59.00 Constipation, unspecified; Z87.19 Personal history of other diseases of the digestive system; Z98.52 Vasectomy status
CPT/HCPCS: 36415; 80053; 82150; 83690; 85025; 85610; 85730; 81003; 74018; 74177; 99285; 96374; 96375 ×2; 96361; J2765; J1170; Q9967

== ENCOUNTER 2018-09-25 14:08 | Emergency (ER) | payer BC ==
[2018-09-25] MEDS ORDERED: MORPHINE SULFATE 4 MG/ML SYRINGE IV STA (14:25)
[2018-09-25] MEDS ORDERED: SODIUM CHLORIDE 0.9% 1,000 ML IV STA (14:25)
[2018-09-25] MEDS ORDERED: ONDANSETRON 4 MG/2 ML VIAL IVP STA (14:25)
--- NOTE | 2018-09-25 14:28 | ED ---
General Adult HPI - General Chief complaint: Abdominal Pain Stated complaint: Abd Pain Time Seen by Provider: 09/25/18 14:20 Source: patient, RN notes reviewed Mode of arrival: ambulatory - History of Present Illness Initial comments: Patient 23-year-old male presenting to the emergency room today with chief complaint of abdominal pain. Patient admits to history of gastritis and pinky tenderness. Patient states that the symptoms started this morning approximate 7 AM. He does admit that it feels similar to either a pancreatic tenderness or gastritis that is had in the past. States symptoms are the same to him that his had increased nausea vomiting. Patient denies any signs of blood in the emesis. Patient denies any other complaints or symptoms currently. Patient denies any recent fever, chills, shortness of breath, chest pain, back pain, abdominal pain, nausea or vomiting, numbness or tingling, headaches or visual changes, or any other complaints. - Related Data Previous Rx's Medication Instructions Recorded Omeprazole 20 mg PO DAILY #20 capsule. 09/25/18 Ondansetron Odt [Zofran ODT] 4 mg PO Q8HR PRN #20 tab 09/25/18 Allergies Allergy/AdvReac Type Severity Reaction Status Date / Time No Known Allergies Allergy Verified 09/25/18 14:26 Review of Systems ROS Statement: Those systems with pertinent positive or pertinent negative responses have been documented in the HPI. ROS Other: All systems not noted in ROS Statement are negative. Past Medical History Past Medical History: No Reported History Additional Past Medical History / Comment(s): pancreatitis History of Any Multi-Drug Resistant Organisms: None Reported Additional Past Surgical History / Comment(s): vasectomy Past Anesthesia/Blood Transfusion Reactions: No Reported Reaction Past Psychological History: No Psychological Hx Reported Smoking Status: Never smoker Past Alcohol Use History: Occasional Past Drug Use History: Marijuana - Past Family History Father Family Medical History: Myocardial Infarction ([place]) Mother Family Medical History: No Reported History Additional Family Medical History / Comment(s): MOM'S DAD HAD ESOPHAGUS CANCER General Exam - General Exam Comments Initial Comments: General: The patient is awake and alert, in no distress, and does not appear acutely ill. Eye: There is normal conjunctiva bilaterally. No signs of icterus. Ears, nose, mouth and throat: There are moist mucous membranes and no oral lesions. Neck: The neck is supple, there is no tenderness or JVD. Cardiovascular: There is a regular rate and rhythm. No murmur, rub or gallop is appreciated. Respiratory: Lungs are clear to auscultation, respirations are non-labored, breath sounds are equal. No wheezes, stridor, rales, or rhonchi. Gastrointestinal: Abdomen soft on palpation. There is tenderness epigastric. No rebound, guarding or CVA tenderness. Musculoskeletal: Normal ROM, no tenderness. Sensation intact. Strength 5/5. Neurological: A&O x 3. CN II-XII intact, There are no obvious motor or sensory deficits. Coordination appears grossly intact. Speech is normal. Skin: Skin is warm and dry and no rashes or lesions are noted. Psychiatric: Cooperative, appropriate mood & affect, normal judgment. Course Vital Signs 09/25/18 14:13 Temperature 97.6 F Pulse Rate 63 Respiratory 22 Rate Blood Pressure 179/100 O2 Sat by Pulse 98 Oximetry Medical Decision Making - Medical Decision Making Patient reexamined with essentially no signs of stressors resting comfortably emergency room. Patient's labs been reviewed did show a mildly elevated white count. It is several bouts of nausea vomiting. Patient's pain is located in the epigastric area. He doesn't that his had similar symptoms in past pancreatitis and gastritis. Patient's pancreatic enzymes are negative. Patient was given pain medication so expensive pain and having diffuse abdominal discomfort. CT of abdomen and pelvis was performed which was negative. At this time patient then reexamine after second dose of pain medication is feeling good at this time. He denies any pain or any symptoms currently. Will be discharged. He'll be started on omeprazole for his symptoms. He is advised that he should follow-up with family physician also GI for further evaluation. Patient advised return if any symptoms increase worsen appropriate concerns. - Lab Data Result diagrams: 09/25/18 14:25 09/25/18 14:25 Lab Results 09/25/18 09/25/18 09/25/18 Range/Units 14:25 14:25 16:50 WBC 13.4 H (3.8-10.6) k/uL RBC 5.50 (4.30-5.90) m/uL Hgb 17.5 (13.0-17.5) gm/dL Hct 51.7 (39.0-53.0) % MCV 94.0 (80.0-100.0) fL MCH 31.7 (25.0-35.0) pg MCHC 33.8 (31.0-37.0) g/dL RDW 12.1 (11.5-15.5) % Plt Count 346 (150-450) k/uL Neutrophils % 90 % Lymphocytes % 7 % Monocytes % 2 % Eosinophils % 0 % Basophils % 0 % Neutrophils # 12.1 H (1.3-7.7) k/uL Lymphocytes # 0.9 L (1.0-4.8) k/uL Monocytes # 0.3 (0-1.0) k/uL Eosinophils # 0.0 (0-0.7) k/uL Basophils # 0.0 (0-0.2) k/uL Sodium 138 (137-145) mmol/L Potassium 4.5 (3.5-5.1) mmol/L Chloride 103 (98-107) mmol/L Carbon Dioxide 22 (22-30) mmol/L Anion Gap 13 mmol/L BUN 13 (9-20) mg/dL Creatinine 0.76 (0.66-1.25) mg/dL Est GFR (CKD-EPI)AfAm >90 (>60 ml/min/1.73 sqM) Est GFR (CKD-EPI)NonAf >90 (>60 ml/min/1.73 sqM) Glucose 140 H (74-99) mg/dL Calcium 10.3 H (8.4-10.2) mg/dL Total Bilirubin 0.7 (0.2-1.3) mg/dL AST 41 (17-59) U/L ALT 52 (21-72) U/L Alkaline Phosphatase 70 (38-126) U/L Total Protein 8.3 H (6.3-8.2) g/dL Albumin 4.8 (3.5-5.0) g/dL Amylase 81 (30-110) U/L Lipase 126 (23-300) U/L Urine Color Light Yellow Urine Appearance Clear (Clear) Urine pH 7.0 (5.0-8.0) Ur Specific [place] 1.014 (1.001-1.035) Urine Protein Negative (Negative) Urine Glucose (UA) Negative (Negative) Urine Blood Negative (Negative) Urine Nitrite Negative (Negative) Urine Bilirubin Negative (Negative) Urine Urobilinogen <2.0 (<2.0) mg/dL Ur Leukocyte Esterase Negative (Negative) Disposition Clinical Impression: Abdominal pain Disposition: HOME SELF-CARE Condition: Good Instructions: Abdominal Pain (ED) Additional Instructions: Please use medication as discussed. Please follow-up with GI/family doctor in the next 2 days. Please return to emergency room if the symptoms increase or worsen or for any other concerns. Prescriptions: Omeprazole 20 mg PO DAILY #20 capsule. Ondansetron Odt [Zofran ODT] 4 mg PO Q8HR PRN #20 tab PRN Reason: Nausea Is patient prescribed a controlled substance at d/c from ED?: No Referrals: None,Stated [Primary Care Provider] - 1-2 days Jaleel Colon MD [STAFF PHYSICIAN] - 1-2 days Time of Disposition: 17:57
[2018-09-25 14:38] LABS: Basophils % (A) 0 %; Eosinophils % (A) 0 %; HCT 51.7 % (39.0-53.0); HGB 17.5 gm/dL (13.0-17.5); Lymphocytes # (A) 0.9 k/uL (1.0-4.8); Lymphocytes % (A) 7 %; MCH 31.7 pg (25.0-35.0); MCHC 33.8 g/dL (31.0-37.0); Mean Platelet Volume 6.8; Monocytes # (A) 0.3 k/uL (0-1.0); Monocytes % (A) 2 %; Neutrophils # (A) 12.1 k/uL (1.3-7.7); Neutrophils % (A) 90 %; Platelet Count 346 k/uL (150-450); RDW 12.1 % (11.5-15.5); WBC 13.4 k/uL (3.8-10.6)
[2018-09-25 14:48] LABS: ALT 52 U/L (21-72); AST 41 U/L (17-59); Albumin 4.8 g/dL (3.5-5.0); Alkaline Phosphatase 70 U/L (38-126); Amylase 81 U/L (30-110); Anion Gap 13 mmol/L; Blood Urea Nitrogen 13 mg/dL (9-20); Calcium 10.3 mg/dL (8.4-10.2); Carbon Dioxide 22 mmol/L (22-30); Chloride 103 mmol/L (98-107); Glucose 140 mg/dL (74-99); Lipase 126 U/L (23-300); Potassium 4.5 mmol/L (3.5-5.1); Sodium 138 mmol/L (137-145); Total Bilirubin 0.7 mg/dL (0.2-1.3); Total Protein 8.3 g/dL (6.3-8.2)
[2018-09-25] MEDS ORDERED: MAG HYDROX/AL HYDROX/SIMETH 30 ML, HYOSCYAMINE ELIXIR 10 ML, CIMETIDINE HCL 300 MG, LID... PO STA ×4 (15:36)
[2018-09-25] MEDS ORDERED: METOCLOPRAMIDE 5 MG/ML 2 ML VIAL IVP STA (15:38)
--- NOTE | 2018-09-25 15:39 | XR ---
EXAMINATION TYPE: XR KUB DATE OF EXAM: 09/25/2018 COMPARISON: NONE HISTORY: Abdomen pain nausea vomiting TECHNIQUE: Upright abdomen FINDINGS: Normal colonic bowel gas is present. Psoas margins are normal. No organomegaly is evident. Osseous structures are normal. No suspicious calcifications are evident. IMPRESSION: Normal abdomen
[2018-09-25] MEDS ORDERED: HYDROmorphone 1 MG/ML 1 ML SYRINGE IVP STA (16:40)
[2018-09-25 17:12] LABS: Appearance,Urine Clear (Clear); Bilirubin,Urine Negative (Negative); Blood,Urine Negative (Negative); Color,Urine Light Yellow; Glucose,Urine (UA) Negative (Negative); Ketones,Urine 3+ (Negative); Leukocyte Esterase,Urine Negative (Negative); Nitrite,Urine Negative (Negative); Protein,Urine Negative (Negative); Specific Gravity,Urine 1.014 (1.001-1.035); Urobilinogen,Urine <2.0 mg/dL (<2.0)
--- NOTE | 2018-09-25 17:39 | CT ---
EXAMINATION TYPE: CT abdomen pelvis w con DATE OF EXAM: 09/25/2018 COMPARISON: 06/16/2018 HISTORY: pancreatitis/ab pain CT DLP: 865.5 mGycm Automated exposure control for dose reduction was used. TECHNIQUE: Helical acquisition of images was performed from the lung bases through the pelvis. CONTRAST: Performed without Oral Contrast and with IV Contrast, patient injected with 100 mL of Isovue 300. FINDINGS: Lung bases are clear of consolidation. There is no pleural effusion. Heart size is normal. There is n o pericardial effusion. Stomach appears normal. Liver spleen pancreas gallbladder appear normal. Bile ducts are not dilated. There is no adrenal mass . Kidneys show satisfactory contrast opacification. There is no hydronephrosis. Ureters are not dilat ed. There is no retroperitoneal adenopathy. Bladder distends smoothly. There is no evidence of a pelv ic mass. There is no inguinal hernia. There is no free fluid in the pelvis. I see no intestinal wall thickening. There are no dilated loops. Appendix appears normal. There is no mesenteric edema or rasta opathy. Lumbar spine is intact. Bony pelvis is intact. IMPRESSION: Negative CT scan abdomen pelvis. No adverse change compared to old exam. No evidence of inflammatory bowel disease.
[2018-09-25 18:06] VITALS: BP 129/69; PULSE 68; RESP 18; TEMP 98.9
== END 2018-09-25 18:13 | disposition home or self-care (01) ==
LOC: EC 14:08
DX: R10.13 Epigastric pain (principal); R11.2 Nausea with vomiting, unspecified; D72.829 Elevated white blood cell count, unspecified
CPT/HCPCS: 36415; 80053; 82150; 83690; 85025; 81003; 74018; 74177; 99284; 96374; 96375 ×3; 96361; J2270; J2765; J2405; J1170; Q9967

== ENCOUNTER 2019-05-05 14:08 | Emergency (ER) | payer BC ==
[2019-05-05] MEDS ORDERED: MORPHINE SULFATE 4 MG/ML SYRINGE IVP STA ×2 (14:27→15:26)
[2019-05-05] MEDS ORDERED: ONDANSETRON 4 MG/2 ML VIAL IVP STA (14:27)
[2019-05-05] MEDS ORDERED: SODIUM CHLORIDE 0.9% 1,000 ML IV STA (14:27)
--- NOTE | 2019-05-05 14:37 | ED ---
General Adult HPI - General Chief complaint: Chest Pain Stated complaint: Chest pain Time Seen by Provider: 05/05/19 14:14 Source: patient Mode of arrival: ambulatory Limitations: no limitations - History of Present Illness Initial comments: Patient is a 43-year-old male presenting to the emergency Department with complaints of abdominal pain x this morning. Patient states he woke up this morning started feeling the pain in his epigastric region/lower chest and also has nausea and vomiting. Pain has increased since this morning and his pain is currently 10/10. Describes his pain as sharp and constant, without radiation. Patient admits to history of pancreatitis and gastritis in the past and this feels similar. Patient admits to diarrhea and chills today. Patient denies fever, shortness of breath, cough, lower abdominal pain, urinary symptoms. Patient denies history of abdominal surgeries. - Related Data Home Medications Medication Instructions Recorded Confirmed No Known Home Medications 05/05/19 05/05/19 Allergies Allergy/AdvReac Type Severity Reaction Status Date / Time No Known Allergies Allergy Verified 05/05/19 14:21 Review of Systems ROS Statement: Those systems with pertinent positive or pertinent negative responses have been documented in the HPI. ROS Other: All systems not noted in ROS Statement are negative. Past Medical History Past Medical History: No Reported History Additional Past Medical History / Comment(s): pancreatitis History of Any Multi-Drug Resistant Organisms: None Reported Additional Past Surgical History / Comment(s): vasectomy Past Anesthesia/Blood Transfusion Reactions: No Reported Reaction Past Psychological History: No Psychological Hx Reported Smoking Status: Never smoker Past Alcohol Use History: Occasional Past Drug Use History: Marijuana - Past Family History Father Family Medical History: Myocardial Infarction ([place]) Mother Family Medical History: No Reported History Additional Family Medical History / Comment(s): MOM'S DAD HAD ESOPHAGUS CANCER General Exam - General Exam Comments Initial Comments: GENERAL: Well-appearing, well-nourished, appears to be in pain/vomiting. HEAD: Atraumatic, normocephalic. EYES: Pupils equal round and reactive to light, extraocular movements intact, sclera anicteric, conjunctiva are normal. ENT: TMs normal, nares patent, oropharynx clear without exudates. Moist mucous membranes. NECK: Normal range of motion, supple without lymphadenopathy or JVD. LUNGS: Breath sounds clear to auscultation bilaterally and equal. No wheezes rales or rhonchi. HEART: Regular rate and rhythm without murmurs, rubs or gallops. ABDOMEN: Tender over epigastric area and upper left quadrant. Soft, normoactive bowel sounds. No rebound. No masses appreciated. : Deferred EXTREMITIES: Normal range of motion, no pitting or edema. No clubbing or cyanosis. NEUROLOGICAL: Cranial nerves II through XII grossly intact. Normal speech, normal gait. PSYCH: Normal mood, normal affect. SKIN: Warm, Dry, normal turgor, no rashes or lesions noted. Limitations: no limitations Course Vital Signs 05/05/19 05/05/19 05/05/19 14:11 15:53 16:25 Temperature 98.3 F Pulse Rate 54 L 55 L 72 Respiratory 18 18 Rate Blood Pressure 145/85 177/102 147/82 O2 Sat by Pulse 99 99 Oximetry EKG Findings - EKG Comments: EKG Findings:: , QTC 420. Sinus catherine, increase in T waves. Medical Decision Making - Medical Decision Making Patient is a 43-year-old male complaining of epigastric pain x one day. Patient states the pain is severe and constant and reports associated nausea and vomiting. Patient states history of pancreatitis and gastritis in the past and this feels similar. On exam patient is tender in the left upper quadrant and epigastric area. CBC shows slight leukocytosis, likely reactive. CMP has glucose at 160, rest is not exciting. UA shows 1+ glucose and 2+ ketones. CT of the abdomen shows borderline liver size is 17.5, diverticulosis without diverticulitis; pancreas is within normal limit. Troponin and EKG is WNL. Patient is receiving fluids, pain control, Reglan for nausea. Patient will be discharged home with GI follow-up. Patient was also counseled to follow up with PCP regarding glucose levels and ketones and glucose in the UA.Case discussed with Dr. Bueno. - Lab Data Result diagrams: 05/05/19 14:43 05/05/19 14:43 Lab Results 05/05/19 05/05/19 05/05/19 Range/Units 14:43 14:43 14:43 WBC 12.8 H (3.8-10.6) k/uL RBC 5.23 (4.30-5.90) m/uL Hgb 16.9 (13.0-17.5) gm/dL Hct 50.4 (39.0-53.0) % MCV 96.3 (80.0-100.0) fL MCH 32.3 (25.0-35.0) pg MCHC 33.5 (31.0-37.0) g/dL RDW 13.3 (11.5-15.5) % Plt Count 347 (150-450) k/uL Neutrophils % 92 % Lymphocytes % 6 % Monocytes % 2 % Eosinophils % 0 % Basophils % 0 % Neutrophils # 11.8 H (1.3-7.7) k/uL Lymphocytes # 0.7 L (1.0-4.8) k/uL Monocytes # 0.2 (0-1.0) k/uL Eosinophils # 0.0 (0-0.7) k/uL Basophils # 0.0 (0-0.2) k/uL Sodium 140 (137-145) mmol/L Potassium 4.7 (3.5-5.1) mmol/L Chloride 105 (98-107) mmol/L Carbon Dioxide 22 (22-30) mmol/L Anion Gap 13 mmol/L BUN 11 (9-20) mg/dL Creatinine 0.71 (0.66-1.25) mg/dL Est GFR (CKD-EPI)AfAm >90 (>60 ml/min/1.73 sqM) Est GFR (CKD-EPI)NonAf >90 (>60 ml/min/1.73 sqM) Glucose 160 H (74-99) mg/dL Calcium 10.2 (8.4-10.2) mg/dL Magnesium 1.8 (1.6-2.3) mg/dL Total Bilirubin 0.7 (0.2-1.3) mg/dL AST 33 (17-59) U/L ALT 28 (21-72) U/L Alkaline Phosphatase 85 (38-126) U/L Troponin I <0.012 (0.000-0.034) ng/mL Total Protein 8.6 H (6.3-8.2) g/dL Albumin 5.3 H (3.5-5.0) g/dL Amylase 97 (30-110) U/L Lipase 108 (23-300) U/L Urine Color Urine Appearance (Clear) Urine pH (5.0-8.0) Ur Specific [place] (1.001-1.035) Urine Protein (Negative) Urine Glucose (UA) (Negative) Urine Ketones (Negative) Urine Blood (Negative) Urine Nitrite (Negative) Urine Bilirubin (Negative) Urine Urobilinogen (<2.0) mg/dL Ur Leukocyte Esterase (Negative) 05/05/19 Range/Units 15:10 WBC (3.8-10.6) k/uL RBC (4.30-5.90) m/uL Hgb (13.0-17.5) gm/dL Hct (39.0-53.0) % MCV (80.0-100.0) fL MCH (25.0-35.0) pg MCHC (31.0-37.0) g/dL RDW (11.5-15.5) % Plt Count (150-450) k/uL Neutrophils % % Lymphocytes % % Monocytes % % Eosinophils % % Basophils % % Neutrophils # (1.3-7.7) k/uL Lymphocytes # (1.0-4.8) k/uL Monocytes # (0-1.0) k/uL Eosinophils # (0-0.7) k/uL Basophils # (0-0.2) k/uL Sodium (137-145) mmol/L Potassium (3.5-5.1) mmol/L Chloride (98-107) mmol/L Carbon Dioxide (22-30) mmol/L Anion Gap mmol/L BUN (9-20) mg/dL Creatinine (0.66-1.25) mg/dL Est GFR (CKD-EPI)AfAm (>60 ml/min/1.73 sqM) Est GFR (CKD-EPI)NonAf (>60 ml/min/1.73 sqM) Glucose (74-99) mg/dL Calcium (8.4-10.2) mg/dL Magnesium (1.6-2.3) mg/dL Total Bilirubin (0.2-1.3) mg/dL AST (17-59) U/L ALT (21-72) U/L Alkaline Phosphatase (38-126) U/L Troponin I (0.000-0.034) ng/mL Total Protein (6.3-8.2) g/dL Albumin (3.5-5.0) g/dL Amylase (30-110) U/L Lipase (23-300) U/L Urine Color Light Yellow Urine Appearance Clear (Clear) Urine pH 8.5 H (5.0-8.0) Ur Specific [place] 1.038 H (1.001-1.035) Urine Protein Negative (Negative) Urine Glucose (UA) 1+ H (Negative) Urine Ketones 2+ H (Negative) Urine Blood Negative (Negative) Urine Nitrite Negative (Negative) Urine Bilirubin Negative (Negative) Urine Urobilinogen <2.0 (<2.0) mg/dL Ur Leukocyte Esterase Negative (Negative) Disposition Clinical Impression: Gastritis, Left upper quadrant pain Disposition: HOME SELF-CARE Condition: Stable Instructions (If sedation given, give patient instructions): Abdominal Pain (ED) Additional Instructions: Please return to the Emergency Department if symptoms worsen or any other concerns. Follow-up with PCP regarding sugar levels and follow-up with GI. Is patient prescribed a controlled substance at d/c from ED?: No Referrals: None,Stated [Primary Care Provider] - 1-2 days
[2019-05-05 14:54] LABS: Basophils % (A) 0 %; Eosinophils % (A) 0 %; HCT 50.4 % (39.0-53.0); HGB 16.9 gm/dL (13.0-17.5); Lymphocytes # (A) 0.7 k/uL (1.0-4.8); Lymphocytes % (A) 6 %; MCH 32.3 pg (25.0-35.0); MCHC 33.5 g/dL (31.0-37.0); MCV 96.3 fL (80.0-100.0); Mean Platelet Volume 7.3; Monocytes # (A) 0.2 k/uL (0-1.0); Monocytes % (A) 2 %; Neutrophils # (A) 11.8 k/uL (1.3-7.7); Neutrophils % (A) 92 %; Platelet Count 347 k/uL (150-450); RBC 5.23 m/uL (4.30-5.90); RDW 13.3 % (11.5-15.5); WBC 12.8 k/uL (3.8-10.6)
[2019-05-05 15:02] LABS: ALT 28 U/L (21-72); AST 33 U/L (17-59); African American GFR (CKD) >90 (>60 ml/min/1.73 sqM); Albumin 5.3 g/dL (3.5-5.0); Alkaline Phosphatase 85 U/L (38-126); Amylase 97 U/L (30-110); Anion Gap 13 mmol/L; Blood Urea Nitrogen 11 mg/dL (9-20); Calcium 10.2 mg/dL (8.4-10.2); Carbon Dioxide 22 mmol/L (22-30); Chloride 105 mmol/L (98-107); Glucose 160 mg/dL (74-99); Lipase 108 U/L (23-300); Magnesium 1.8 mg/dL (1.6-2.3); Potassium 4.7 mmol/L (3.5-5.1); Sodium 140 mmol/L (137-145); Total Bilirubin 0.7 mg/dL (0.2-1.3); Total Protein 8.6 g/dL (6.3-8.2)
[2019-05-05 15:20] LABS: Appearance,Urine Clear (Clear); Bilirubin,Urine Negative (Negative); Blood,Urine Negative (Negative); Color,Urine Light Yellow; Glucose,Urine (UA) 1+ (Negative); Leukocyte Esterase,Urine Negative (Negative); Nitrite,Urine Negative (Negative); PH, Urine 8.5 (5.0-8.0); Protein,Urine Negative (Negative); Specific Gravity,Urine 1.038 (1.001-1.035); Urobilinogen,Urine <2.0 mg/dL (<2.0)
--- NOTE | 2019-05-05 15:24 | CT ---
EXAMINATION TYPE: CT abdomen pelvis w con DATE OF EXAM: 05/05/2019 COMPARISON: 09/25/2013 HISTORY: 43-year-old male Epigastric pain, nausea, vomiting TECHNIQUE: Contiguous axial scanning of the abdomen and pelvis following administration of 100 ml Iso kasandra 300 IV contrast. Delayed images through the kidneys and coronal/sagittal reconstructions perform ed. CT DLP: 696.8 mGycm Automated exposure control for dose reduction was used. FINDINGS: Heart normal size without pericardial effusion. Lung bases clear without pleural effusion. Liver upper limits of normal in size at 17.5 cm. No focal liver lesion. Portal venous system is paten t. No biliary ductal dilatation. Gallbladder, adrenal glands, kidneys, spleen with hilar splenule, and pancreas appear within normal l imits. No dilated small bowel, free fluid, or free air. No mesenteric or retroperitoneal lymphadenopathy. No significant stool burden. Normal appendix. Mild circumferential wall thickening of the colon suspe cted to be secondary to nondistention. Sigmoid colonic diverticulosis. No pericolonic inflammatory ch criss. Bladder is urine distended. Multiple pelvic phleboliths. No abnormal fluid collection the pelvis or p elvic lymphadenopathy. Bones: Mild degenerative spurring of the hips. No osseous destructive process. IMPRESSION: 1. BORDERLINE SIZE LIVER AT 17.5 CM. 2. SIGMOID DIVERTICULOSIS WITHOUT EVIDENCE FOR ACUTE DIVERTICULITIS. 3. CIRCUMFERENTIAL WALL THICKENING OF THE REMAINDER OF THE COLON SUSPECTED TO BE SECONDARY TO NONDIST ENTION. CORRELATE FOR ANY CLINICAL SIGNS/SYMPTOMS OF A NONSPECIFIC MILD COLITIS.
[2019-05-05 15:25] LABS: Ketones,Urine 2+ (Negative)
[2019-05-05] MEDS ORDERED: METOCLOPRAMIDE 5 MG/ML 2 ML VIAL IVP STA (15:26)
[2019-05-05] MEDS ORDERED: FAMOTIDINE 20 MG/2 ML VIAL IV STA (15:26)
[2019-05-05] MEDS ORDERED: MAG HYDROX/AL HYDROX/SIMETH 30 ML, HYOSCYAMINE ELIXIR 10 ML, CIMETIDINE HCL 300 MG, LID... PO STA ×4 (16:20)
[2019-05-05] MEDS ORDERED: HYDROmorphone 1 MG/ML 1 ML SYRINGE IVP STA (16:20)
[2019-05-05 17:23] VITALS: BP 157/92; PULSE 80; RESP 17; TEMP 99.2
== END 2019-05-05 17:23 | disposition home or self-care (01) ==
LOC: EC 14:08
DX: K29.70 Gastritis, unspecified, without bleeding (principal); D72.829 Elevated white blood cell count, unspecified; K57.30 Diverticulosis of large intestine without perforation or abscess without bleeding; R07.89 Other chest pain; Z87.19 Personal history of other diseases of the digestive system; Z98.52 Vasectomy status
CPT/HCPCS: 36415; 93005; 80053; 82150; 83690; 83735; 84484; 85025; 81003; 74177; 99285; 96374; 96375 ×4; 96376; 96361; J2270; J2765; J2405; J1170; Q9967

== ENCOUNTER 2019-09-08 07:30 | Emergency (ER) | payer BC ==
[2019-09-08 07:38] VITALS: TEMP 97.9
[2019-09-08] MEDS ORDERED: KETOROLAC 30 MG/ML 1 ML VIAL IVP STA (07:51)
[2019-09-08] MEDS ORDERED: ONDANSETRON 4 MG/2 ML VIAL IVP STA (07:51)
[2019-09-08] MEDS ORDERED: SODIUM CHLORIDE 0.9% 1,000 ML IV STA (07:51)
[2019-09-08] MEDS ORDERED: SODIUM CHLORIDE 0.9% 2,000 ML IV STA (07:51)
[2019-09-08] MEDS ORDERED: PANTOPRAZOLE 40 MG/10 ML VIAL IVP STA (07:51)
[2019-09-08] MEDS ORDERED: MAG HYDROX/AL HYDROX/SIMETH 30 ML, HYOSCYAMINE ELIXIR 10 ML, LIDOCAINE VISCOUS 2% 10 ML PO STA ×3 (07:52)
--- NOTE | 2019-09-08 07:56 | ED ---
Abdominal Pain HPI - General Chief Complaint: Abdominal Pain Stated Complaint: Chest pain Time Seen by Provider: 09/08/19 07:42 Source: patient, RN notes reviewed, old records reviewed Mode of arrival: ambulatory Limitations: no limitations - History of Present Illness Initial Comments: This patient's a 43-year-old male presents emergency department today for evaluation with chief complaint of epigastric abdominal pain, substernal pain. Symptoms started last night after he drink 2 alcoholic beverages on an airplane back home. Patient reports that he's had this pain before one time he was hospitalized for pancreatitis at times is told he has gastritis. Patient states his previously on omeprazole but has not been taking this for quite some time. Patient states that he also frequently smokes marijuana but decided to quit smoking on Friday. Patient states that he has had significant weight loss over the past year since he started to develop the symptoms of epigastric pain. Patient states that he has had no specific fevers or chills. He reports multiple episodes of nausea and vomiting. - Related Data Previous Rx's Medication Instructions Recorded Dicyclomine [Bentyl] 10 mg PO TID #12 capsule 09/08/19 Omeprazole [PriLOSEC] 20 mg PO AC-BID #40 cap 09/08/19 Ondansetron Odt [Zofran Odt] 4 mg PO Q8HR PRN #12 tab 09/08/19 Allergies Allergy/AdvReac Type Severity Reaction Status Date / Time No Known Allergies Allergy Verified 09/08/19 07:51 Review of Systems ROS Statement: Those systems with pertinent positive or pertinent negative responses have been documented in the HPI. ROS Other: All systems not noted in ROS Statement are negative. Past Medical History Past Medical History: No Reported History Additional Past Medical History / Comment(s): pancreatitis History of Any Multi-Drug Resistant Organisms: None Reported Additional Past Surgical History / Comment(s): vasectomy Past Anesthesia/Blood Transfusion Reactions: No Reported Reaction Past Psychological History: No Psychological Hx Reported Smoking Status: Never smoker Past Alcohol Use History: Occasional Past Drug Use History: None Reported, Marijuana - Past Family History Father Family Medical History: Myocardial Infarction ([place]) Mother Family Medical History: No Reported History Additional Family Medical History / Comment(s): MOM'S DAD HAD ESOPHAGUS CANCER General Exam - General Exam Comments Initial Comments: 43-year-old male. Alert and oriented. No distress. General: Well appearing, well nourished, in no distress. Oriented x 3, normal mood and affect . Ambulating without difficulty. Skin: Good turgor, no rash, unusual bruising or prominent lesions Hair: Normal texture and distribution. HEENT: Head: Normocephalic, atraumatic, no visible or palpable masses, depressions, or scaring. Eyes: Visual acuity intact, conjunctiva clear, sclera non-icteric, EOM intact, PERRL. Ears: EACs clear, TMs translucent & cone of light visualized. hearing intact. Nose: No external lesions, mucosa non-inflamed, septum and turbinates normal Mouth: Mucous membranes moist, no mucosal lesions. Teeth/Gums: No obvious caries or periodontal disease. No gingival inflammation or significant resorption. Pharynx: Mucosa non-inflamed, no tonsillar hypertrophy or exudate Neck: Supple, without lesions, bruits, or adenopathy, thyroid non-enlarged and non-tender Heart: No cardiomegaly or thrills; regular rate and rhythm, no murmur or gallop Lungs: Clear to auscultation and percussion Abdomen: Bowel sounds normal, epigastric tenderness. Extremities: No amputations or deformities, cyanosis, edema or varicosities, peripheral pulses intact Musculoskeletal: Normal gait and station. No misalignment, asymmetry, crepitation, defects, tenderness, masses, effusions, decreased range of motion, instability, atrophy or abnormal strength or tone in the head, neck, spine, ribs, pelvis or extremities. Neurologic: CN 2-12 normal. Sensation to pain, touch, and proprioception normal. DTRs normal in upper and lower extremities. No pathologic reflexes. Psychiatric: Oriented X3, intact recent and remote memory, judgment and insight, normal mood and affect. Limitations: no limitations Course Vital Signs 09/08/19 07:34 Temperature 97.9 F Pulse Rate 67 Respiratory 18 Rate Blood Pressure 175/103 O2 Sat by Pulse 100 Oximetry Medical Decision Making - Medical Decision Making Patient is a 43-year-old male, presents today with less vomiting epigastric abdominal pain. Patient reports symptoms started after drinking alcohol history. He was given IV fluids labwork obtained. He has evidence of leukocytosis was likely reactive to vomiting. Vital signs are stable had any fever. Chemsty panels are unremarkable. Troponin and EKG are negative. U rinalysis is positive for ketones consider dehydration. There was small a lot of blood noted in urine and 34 red blood cells. Moderate amount of bacteria was noted as well. Urine culture obtained. She denies any concern for UTI, STI or are specific flank pain. This time Patient has been given rounds of pain medicine, is resting comfortably in bed. A KUB shows no instructed bowel gas pattern. This time patient's symptoms seem related to gastritis. I discussed with the Patient on an acid medicine Marvin and Ingrid. I discussed the Patient follow-up with his GI specialist. He states he sees a Dr. Crump and [facility]. I discussed the Patient denies return if he has any worsening symptoms fevers or cannot continues to have vomiting. Patient is agreeable treatment plan will comply. - Lab Data Result diagrams: 09/08/19 07:47 09/08/19 07:47 Lab Results 09/08/19 09/08/19 09/08/19 Range/Units 07:47 07:47 07:47 WBC 17.0 H (3.8-10.6) k/uL RBC 5.27 (4.30-5.90) m/uL Hgb 17.3 (13.0-17.5) gm/dL Hct 49.6 (39.0-53.0) % MCV 94.1 (80.0-100.0) fL MCH 32.7 (25.0-35.0) pg MCHC 34.8 (31.0-37.0) g/dL RDW 11.9 (11.5-15.5) % Plt Count 361 (150-450) k/uL Neutrophils % 91 % Lymphocytes % 5 % Monocytes % 3 % Eosinophils % 0 % Basophils % 0 % Neutrophils # 15.5 H (1.3-7.7) k/uL Lymphocytes # 0.9 L (1.0-4.8) k/uL Monocytes # 0.4 (0-1.0) k/uL Eosinophils # 0.0 (0-0.7) k/uL Basophils # 0.0 (0-0.2) k/uL PT 10.1 (9.0-12.0) sec INR 0.9 (<1.2) APTT 24.8 (22.0-30.0) sec Sodium 137 (137-145) mmol/L Potassium 4.3 (3.5-5.1) mmol/L Chloride 102 (98-107) mmol/L Carbon Dioxide 21 L (22-30) mmol/L Anion Gap 14 mmol/L BUN 12 (9-20) mg/dL Creatinine 0.78 (0.66-1.25) mg/dL Est GFR (CKD-EPI)AfAm >90 (>60 ml/min/1.73 sqM) Est GFR (CKD-EPI)NonAf >90 (>60 ml/min/1.73 sqM) Glucose 150 H (74-99) mg/dL Calcium 10.2 (8.4-10.2) mg/dL Total Bilirubin 1.1 (0.2-1.3) mg/dL AST 26 (17-59) U/L ALT 22 (21-72) U/L Alkaline Phosphatase 75 (38-126) U/L Troponin I (0.000-0.034) ng/mL Total Protein 8.4 H (6.3-8.2) g/dL Albumin 5.0 (3.5-5.0) g/dL Amylase 87 (30-110) U/L Lipase 225 (23-300) U/L Urine Color Urine Appearance (Clear) Urine pH (5.0-8.0) Ur Specific [place] (1.001-1.035) Urine Protein (Negative) Urine Glucose (UA) (Negative) Urine Ketones (Negative) Urine Blood (Negative) Urine Nitrite (Negative) Urine Bilirubin (Negative) Urine Urobilinogen (<2.0) mg/dL Ur Leukocyte Esterase (Negative) Urine RBC (0-5) /hpf Urine WBC (0-5) /hpf Ur Squamous Epith Cells (0-4) /hpf Urine Bacteria (None) /hpf Urine Mucus (None) /hpf 09/08/19 09/08/19 Range/Units 07:47 07:47 WBC (3.8-10.6) k/uL RBC (4.30-5.90) m/uL Hgb (13.0-17.5) gm/dL Hct (39.0-53.0) % MCV (80.0-100.0) fL MCH (25.0-35.0) pg MCHC (31.0-37.0) g/dL RDW (11.5-15.5) % Plt Count (150-450) k/uL Neutrophils % % Lymphocytes % % Monocytes % % Eosinophils % % Basophils % % Neutrophils # (1.3-7.7) k/uL Lymphocytes # (1.0-4.8) k/uL Monocytes # (0-1.0) k/uL Eosinophils # (0-0.7) k/uL Basophils # (0-0.2) k/uL PT (9.0-12.0) sec INR (<1.2) APTT (22.0-30.0) sec Sodium (137-145) mmol/L Potassium (3.5-5.1) mmol/L Chloride (98-107) mmol/L Carbon Dioxide (22-30) mmol/L Anion Gap mmol/L BUN (9-20) mg/dL Creatinine (0.66-1.25) mg/dL Est GFR (CKD-EPI)AfAm (>60 ml/min/1.73 sqM) Est GFR (CKD-EPI)NonAf (>60 ml/min/1.73 sqM) Glucose (74-99) mg/dL Calcium (8.4-10.2) mg/dL Total Bilirubin (0.2-1.3) mg/dL AST (17-59) U/L ALT (21-72) U/L Alkaline Phosphatase (38-126) U/L Troponin I <0.012 (0.000-0.034) ng/mL Total Protein (6.3-8.2) g/dL Albumin (3.5-5.0) g/dL Amylase (30-110) U/L Lipase (23-300) U/L Urine Color Yellow Urine Appearance Clear (Clear) Urine pH 7.0 (5.0-8.0) Ur Specific [place] 1.028 (1.001-1.035) Urine Protein 1+ H (Negative) Urine Glucose (UA) Negative (Negative) Urine Ketones 3+ H (Negative) Urine Blood Small H (Negative) Urine Nitrite Negative (Negative) Urine Bilirubin Negative (Negative) Urine Urobilinogen <2.0 (<2.0) mg/dL Ur Leukocyte Esterase Negative (Negative) Urine RBC 34 H (0-5) /hpf Urine WBC 2 (0-5) /hpf Ur Squamous Epith Cells <1 (0-4) /hpf Urine Bacteria Rare H (None) /hpf Urine Mucus Moderate H (None) /hpf 09/08/19 07:57 EKG performed at 749 shows sinus rhythm with short NV interval. Otherwise normal EKG. Ventricular rate of 62 bpm. Levels were 86 ms. QRS ration 74 ms. QT QTc is 418/424 ms. No evidence of ST elevation. - Radiology Data Radiology results: report reviewed KUB is overall nonspecific but still favor nonobstructive bowel gas pattern. Telemetry prominent gas-filled bowel loops the right upper quadrant area of the jessica hepatis and left upper quadrant just below diaphragm of air-fluid levels and nonspecific. Gas and fecal matter in the nondistended colon or rectum. Scattered pelvic phleboliths. No visceromegaly pneumoperitoneum or abnormal constipation as per she. Lung bases are clear. Disposition Clinical Impression: Gastritis, Nausea & vomiting Disposition: HOME SELF-CARE Condition: Good Instructions (If sedation given, give patient instructions): Gastritis (ED) Additional Instructions: Please use medication as discussed. Please follow up with family doctor if symptoms have not improved over the next two days. Please return to the emergency room if your symptoms increase or worsen or for any other concerns. Patient is clear liquid or bland diet. Follow-up with your GI specialist. Prescriptions: Dicyclomine [Bentyl] 10 mg PO TID #12 capsule Omeprazole [PriLOSEC] 20 mg PO AC-BID #40 cap Ondansetron Odt [Zofran Odt] 4 mg PO Q8HR PRN #12 tab PRN Reason: Pain Is patient prescribed a controlled substance at d/c from ED?: No Referrals: None,Stated [Primary Care Provider] - 1-2 days Zahraa Reza MD [STAFF PHYSICIAN] - 1-2 days Time of Disposition: 10:07
[2019-09-08 08:07] LABS: Basophils % (A) 0 %; Eosinophils % (A) 0 %; HCT 49.6 % (39.0-53.0); HGB 17.3 gm/dL (13.0-17.5); Lymphocytes # (A) 0.9 k/uL (1.0-4.8); Lymphocytes % (A) 5 %; MCH 32.7 pg (25.0-35.0); MCHC 34.8 g/dL (31.0-37.0); MCV 94.1 fL (80.0-100.0); Mean Platelet Volume 6.2; Monocytes # (A) 0.4 k/uL (0-1.0); Monocytes % (A) 3 %; Neutrophils # (A) 15.5 k/uL (1.3-7.7); Neutrophils % (A) 91 %; Platelet Count 361 k/uL (150-450); RBC 5.27 m/uL (4.30-5.90); RDW 11.9 % (11.5-15.5)
[2019-09-08] MEDS ORDERED: METOCLOPRAMIDE 5 MG/ML 2 ML VIAL IVP STA (08:16)
[2019-09-08] MEDS ORDERED: diphenhydrAMINE 50 MG/ML 1 ML VIAL IVP STA (08:16)
[2019-09-08 08:20] LABS: ALT 22 U/L (21-72); AST 26 U/L (17-59); African American GFR (CKD) >90 (>60 ml/min/1.73 sqM); Alkaline Phosphatase 75 U/L (38-126); Amylase 87 U/L (30-110); Anion Gap 14 mmol/L; Blood Urea Nitrogen 12 mg/dL (9-20); Calcium 10.2 mg/dL (8.4-10.2); Carbon Dioxide 21 mmol/L (22-30); Chloride 102 mmol/L (98-107); Glucose 150 mg/dL (74-99); Potassium 4.3 mmol/L (3.5-5.1); Sodium 137 mmol/L (137-145); Total Bilirubin 1.1 mg/dL (0.2-1.3); Total Protein 8.4 g/dL (6.3-8.2)
[2019-09-08 08:21] LABS: INR 0.9 (<1.2); Partial Thromboplastin Time 24.8 sec (22.0-30.0); Prothrombin Time 10.1 sec (9.0-12.0)
[2019-09-08] MEDS ORDERED: HYDROmorphone 1 MG/ML 1 ML SYRINGE IVP STA (09:15)
--- NOTE | 2019-09-08 09:16 | XR ---
EXAMINATION TYPE: XR KUB DATE OF EXAM: 09/08/2019 9:00 AM CLINICAL HISTORY: History of pancreatitis with epigastric pain. TECHNIQUE: Two Upright KUB images of the abdomen are obtained. COMPARISON: CT abdomen and pelvis May 05, 2019.. FINDINGS: Scattered gas is seen in non-distended small bowel loops. Slightly prominent gas-filled bow el loop right upper quadrant near jessica hepatis and left upper quadrant just below diaphragm with air fluid levels are nonspecific. Gas and fecal material is seen in non-distended colon and rectum. Scat tered pelvic phleboliths. There is no visceromegaly, pneumoperitoneum, or abnormal calcification appr eciated. The lung bases are clear and the osseous structures are intact. Overlying EKG leads are pres ent. IMPRESSION: Overall nonspecific but still favor nonobstructive bowel gas pattern.
[2019-09-08 09:45] LABS: Appearance,Urine Clear (Clear); Bacteria,Urine Rare /hpf; Bilirubin,Urine Negative (Negative); Blood,Urine Small (Negative); Color,Urine Yellow; Glucose,Urine (UA) Negative (Negative); Ketones,Urine 3+ (Negative); Leukocyte Esterase,Urine Negative (Negative); Mucus,Urine Moderate /hpf; Nitrite,Urine Negative (Negative); Protein,Urine 1+ (Negative); RBC,Urine 34 /hpf (0-5); Specific Gravity,Urine 1.028 (1.001-1.035); Squamous Epithelial Cell,Urine <1 /hpf (0-4); Urobilinogen,Urine <2.0 mg/dL (<2.0); WBC,Urine 2 /hpf (0-5)
[2019-09-08 10:15] VITALS: BP 158/76; PULSE 76; RESP 16
== END 2019-09-08 10:13 | disposition home or self-care (01) ==
LOC: EC 07:30
DX: K29.70 Gastritis, unspecified, without bleeding (principal)
CPT/HCPCS: 36415; 93005; 80053; 82150; 83690; 84484; 85025; 85610; 85730; 81001; 87086; 74018; 99284; 96374; 96375 ×5; 96361 ×2; J1200; J2765; J2405; J1885; J1170; C9113

== ENCOUNTER 2020-03-11 15:46 | Emergency (ER) | payer BC ==
[2020-03-11 15:53] VITALS: RESP 18; TEMP 97.4
[2020-03-11] MEDS ORDERED: PANTOPRAZOLE 40 MG/10 ML VIAL IVP STA (16:49)
[2020-03-11] MEDS ORDERED: ONDANSETRON 4 MG/2 ML VIAL IVP STA (16:49)
[2020-03-11] MEDS ORDERED: SODIUM CHLORIDE 0.9% 1,000 ML IV STA (16:49)
--- NOTE | 2020-03-11 17:12 | ED ---
Nausea/Vomiting/Diarrhea HPI - General Chief complaint: Nausea/Vomiting/Diarrhea Stated complaint: chest pain/chs Time Seen by Provider: 03/11/20 16:04 Source: patient Mode of arrival: ambulatory Limitations: no limitations - History of Present Illness Initial comments: Patient is a 44-year-old male presenting to the emergency Department with complaints of nausea and vomiting since this morning. Patient states she has a history of cannabis hyperemesis syndrome. Patient states he has not smoked in approximately one year but started back up since he's been at home. Patient states the symptoms feel similar to last time this happened. He has not been able to eat or drink much all day and continues to be nauseous. He admits to some mild epigastric burning, no other abdominal pain. He denies fever, chills, shortness of breath, cough. He has no other complaints at this time. Upon arrival to the ER, his vital signs are stable. - Related Data Previous Rx's Medication Instructions Recorded Dicyclomine [Bentyl] 10 mg PO TID #12 capsule 09/08/19 Omeprazole [PriLOSEC] 20 mg PO AC-BID #40 cap 09/08/19 Ondansetron Odt [Zofran Odt] 4 mg PO Q8HR PRN #12 tab 09/08/19 Allergies Allergy/AdvReac Type Severity Reaction Status Date / Time No Known Allergies Allergy Verified 03/11/20 15:54 Review of Systems ROS Statement: Those systems with pertinent positive or pertinent negative responses have been documented in the HPI. ROS Other: All systems not noted in ROS Statement are negative. Past Medical History Past Medical History: No Reported History Additional Past Medical History / Comment(s): pancreatitis, cannibinoid hy peremesis syndrome History of Any Multi-Drug Resistant Organisms: None Reported Additional Past Surgical History / Comment(s): vasectomy Past Anesthesia/Blood Transfusion Reactions: No Reported Reaction Past Psychological History: No Psychological Hx Reported Smoking Status: Never smoker Past Alcohol Use History: Occasional Past Drug Use History: Marijuana - Past Family History Father Family Medical History: Myocardial Infarction ([place]) Mother Family Medical History: No Reported History Additional Family Medical History / Comment(s): MOM'S DAD HAD ESOPHAGUS CANCER General Exam - General Exam Comments Initial Comments: GENERAL: Slightly disheveled, in no acute distress. Patient is actively dry heaving during exam. HEAD: Atraumatic, normocephalic. EYES: Pupils equal round and reactive to light, extraocular movements intact, sclera anicteric, conjunctiva are normal. ENT: TMs normal, nares patent, oropharynx clear without exudates. Moist mucous membranes. NECK: Normal range of motion, supple without lymphadenopathy or JVD. LUNGS: Breath sounds clear to auscultation bilaterally and equal. No wheezes rales or rhonchi. HEART: Regular rate and rhythm without murmurs, rubs or gallops. ABDOMEN: Soft, nontender, normoactive bowel sounds. No guarding, no rebound. No masses appreciated. : Deferred EXTREMITIES: Normal range of motion, no pitting or edema. No clubbing or cyanosis. NEUROLOGICAL: Normal speech, normal gait. PSYCH: Normal mood, normal affect. SKIN: Warm, Dry, normal turgor, no rashes or lesions noted. Limitations: no limitations Course Vital Signs 03/11/20 03/11/20 03/11/20 15:49 15:53 16:53 Temperature 97.4 F L Pulse Rate 55 L 54 L Respiratory 18 18 18 Rate Blood Pressure 170/96 163/102 O2 Sat by Pulse 100 99 Oximetry 03/11/20 03/11/20 03/11/20 17:00 18:00 19:00 Temperature Pulse Rate 60 65 Respiratory 18 18 Rate Blood Pressure 167/102 171/97 O2 Sat by Pulse 99 99 99 Oximetry Medical Decision Making - Medical Decision Making Patient 44-year-old male presenting with nausea and vomiting, epigastric burning since this morning. Patient has history of cannabis hyperemesis syndrome. He states started smoking marijuana again after not for a year. His vital signs are stable. Exam just reveals mild epigastric tenderness, no other acute findings. Patient has mild leukocytosis on lab work, slightly reactive to vomiting. Rest of lab work shows no acute abnormalities. Patient was given fluids, nausea meds, Toradol, GI cocktail. Patient reports improvement in his symptoms. He is stable for discharge. I recommended not smoking marijuana anymore. Return parameters were discussed with the patient he verbalizes understanding. Case discussed with Dr. Escobedo. - Lab Data Result diagrams: 03/11/20 16:12 03/11/20 16:12 Lab Results 03/11/20 03/11/20 Range/Units 16:12 16:12 WBC 14.6 H (3.8-10.6) k/uL RBC 5.33 (4.30-5.90) m/uL Hgb 17.4 (13.0-17.5) gm/dL Hct 50.0 (39.0-53.0) % MCV 93.8 (80.0-100.0) fL MCH 32.7 (25.0-35.0) pg MCHC 34.8 (31.0-37.0) g/dL RDW 12.0 (11.5-15.5) % Plt Count 333 (150-450) k/uL Neutrophils % 91 % Lymphocytes % 5 % Monocytes % 2 % Eosinophils % 0 % Basophils % 0 % Neutrophils # 13.3 H (1.3-7.7) k/uL Lymphocytes # 0.8 L (1.0-4.8) k/uL Monocytes # 0.4 (0-1.0) k/uL Eosinophils # 0.0 (0-0.7) k/uL Basophils # 0.0 (0-0.2) k/uL Sodium 136 L (137-145) mmol/L Potassium 4.5 (3.5-5.1) mmol/L Chloride 101 (98-107) mmol/L Carbon Dioxide 21 L (22-30) mmol/L Anion Gap 14 mmol/L BUN 12 (9-20) mg/dL Creatinine 0.73 (0.66-1.25) mg/dL Est GFR (CKD-EPI)AfAm >90 (>60 ml/min/1.73 sqM) Est GFR (CKD-EPI)NonAf >90 (>60 ml/min/1.73 sqM) Glucose 150 H (74-99) mg/dL Calcium 10.2 (8.4-10.2) mg/dL Total Bilirubin 0.7 (0.2-1.3) mg/dL AST 37 (17-59) U/L ALT 33 (4-49) U/L Alkaline Phosphatase 75 (38-126) U/L Total Protein 8.5 H (6.3-8.2) g/dL Albumin 5.2 H (3.5-5.0) g/dL Disposition Clinical Impression: Dehydration, Cannabis hyperemesis syndrome concurrent with and due to cannabis abuse Disposition: HOME SELF-CARE Condition: Stable Instructions (If sedation given, give patient instructions): Dehydration (ED) Additional Instructions: Please return to the Emergency Department if symptoms worsen or any other con cerns. Refrain from marijuana. Continue to increase fluid intake. Is patient prescribed a controlled substance at d/c from ED?: No
[2020-03-11 17:18] LABS: Basophils % (A) 0 %; Eosinophils % (A) 0 %; HGB 17.4 gm/dL (13.0-17.5); Lymphocytes # (A) 0.8 k/uL (1.0-4.8); Lymphocytes % (A) 5 %; MCH 32.7 pg (25.0-35.0); MCHC 34.8 g/dL (31.0-37.0); MCV 93.8 fL (80.0-100.0); Mean Platelet Volume 8.1; Monocytes # (A) 0.4 k/uL (0-1.0); Monocytes % (A) 2 %; Neutrophils # (A) 13.3 k/uL (1.3-7.7); Neutrophils % (A) 91 %; Platelet Count 333 k/uL (150-450); RBC 5.33 m/uL (4.30-5.90); WBC 14.6 k/uL (3.8-10.6)
[2020-03-11 17:37] LABS: ALT 33 U/L (4-49); AST 37 U/L (17-59); African American GFR (CKD) >90 (>60 ml/min/1.73 sqM); Albumin 5.2 g/dL (3.5-5.0); Alkaline Phosphatase 75 U/L (38-126); Anion Gap 14 mmol/L; Blood Urea Nitrogen 12 mg/dL (9-20); Calcium 10.2 mg/dL (8.4-10.2); Carbon Dioxide 21 mmol/L (22-30); Chloride 101 mmol/L (98-107); Glucose 150 mg/dL (74-99); Non-African American GFR(CKD) >90 (>60 ml/min/1.73 sqM); Potassium 4.5 mmol/L (3.5-5.1); Sodium 136 mmol/L (137-145); Total Bilirubin 0.7 mg/dL (0.2-1.3); Total Protein 8.5 g/dL (6.3-8.2)
[2020-03-11] MEDS ORDERED: METOCLOPRAMIDE 5 MG/ML 2 ML VIAL IVP STA (17:43)
[2020-03-11] MEDS ORDERED: KETOROLAC 30 MG/ML 1 ML VIAL IVP STA (18:18)
[2020-03-11 18:30] VITALS: BP 171/97; PULSE 65
[2020-03-11] MEDS ORDERED: MAG HYDROX/AL HYDROX/SIMETH 30 ML, HYOSCYAMINE ELIXIR 10 ML, LIDOCAINE VISCOUS 2% 10 ML PO STA ×3 (18:48)
[2020-03-11] MEDS ORDERED: ONDANSETRON 4 MG ODT STARTER PACK 2 TAB BTL PO STA (19:13)
== END 2020-03-11 19:19 | disposition home or self-care (01) ==
LOC: EC 15:46
DX: F12.188 Cannabis abuse with other cannabis-induced disorder (principal); E86.0 Dehydration; R10.816 Epigastric abdominal tenderness; D72.829 Elevated white blood cell count, unspecified; Z87.19 Personal history of other diseases of the digestive system
CPT/HCPCS: 36415; 80053; 85025; 96374; 96375 ×3; 96361 ×2; 99284; J2765; J2405; J1885; S0119; C9113

== ENCOUNTER 2022-06-11 18:18 | Emergency (ER) | payer BC, MEDICAID ==
[2022-06-11] MEDS ORDERED: SODIUM CHLORIDE 0.9% 1,000 ML IV STA (18:43)
[2022-06-11] MEDS ORDERED: ONDANSETRON 4 MG/2 ML VIAL IVP STA (18:43)
[2022-06-11 18:45] VITALS: TEMP 98.1
[2022-06-11] MEDS ORDERED: diphenhydrAMINE 50 MG/ML 1 ML VIAL IVP STA (18:45)
[2022-06-11] MEDS ORDERED: MORPHINE SULFATE 4 MG/ML SYRINGE IV STA (18:45)
[2022-06-11] MEDS ORDERED: METOCLOPRAMIDE 5 MG/ML 2 ML VIAL IVP STA (18:45)
--- NOTE | 2022-06-11 18:48 | ED ---
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 Patient presents today after developing diarrhea this morning but vomiting. Then epigastric discomfort. Patient has pizza been admitted for pancreatitis. Patient states he did drink alcohol last week and was smoking marijuana. Patient states the last time he pancreatitis it was about 1 week after he drinks alcohol as well. No alcohol use within the last 48 hours. No headache, no fever or chills, no changes in vision or hearing, no sore throat or difficulty with speech, no neck pain, no chest pain or shortness of breath, no changes in urination no numbness or tingling, no extremity pain, no skin rashes or lesions. No hematemesis or coffee-ground emesis. Past medical, surgical, social, and family history reviewed. MD Complaint: abdominal pain - Related Data Home Medications Medication Instructions Recorded Confirmed Omeprazole [PriLOSEC] 20 mg PO HS 06/11/22 06/11/22 Previous Rx's Medication Instructions Recorded Famotidine [Pepcid] 20 mg PO BID #20 tablet 06/12/22 Ondansetron Odt [Zofran Odt] 4 mg PO Q6HR PRN #20 tab 06/12/22 Allergies Allergy/AdvReac Type Severity Reaction Status Date / Time No Known Allergies Allergy Verified 06/11/22 23:13 Review of Systems ROS Statement: Those systems with pertinent positive or pertinent negative responses have been documented in the HPI. ROS Other: All systems not noted in ROS Statement are negative. Past Medical History Past Medical History: No Reported History Additional Past Medical History / Comment(s): pancreatitis, cannibinoid hyperemesis syndrome History of Any Multi-Drug Resistant Organisms: None Reported Additional Past Surgical History / Comment(s): vasectomy Past Anesthesia/Blood Transfusion Reactions: No Reported Reaction Past Psychological History: No Psychological Hx Reported Smoking Status: Never smoker Past Alcohol Use History: Occasional Past Drug Use History: Marijuana - Past Family History Father Family Medical History: Myocardial Infarction ([place]) Mother Family Medical History: No Reported History Additional Family Medical History / Comment(s): MOM'S DAD HAD ESOPHAGUS CANCER General Exam - General Exam Comments Initial Comments: Nontoxic appearing male. Noted to be hypertensive in triage. Epigastric discomfort. General appearance: alert, in distress Head exam: Present: atraumatic, normocephalic, normal inspection Eye exam: Present: normal appearance, PERRL, EOMI. Absent: scleral icterus, conjunctival injection, periorbital swelling ENT exam: Present: normal exam, mucous membranes moist Neck exam: Present: normal inspection. Absent: tenderness, meningismus, lymphadenopathy Respiratory exam: Present: normal lung sounds bilaterally. Absent: respiratory distress, wheezes, rales, rhonchi, stridor Cardiovascular Exam: Present: regular rate, normal rhythm, normal heart sounds. Absent: systolic murmur, diastolic murmur, rubs, gallop, clicks GI/Abdominal exam: Present: soft, normal bowel sounds. Absent: distended, tenderness, guarding, rebound, rigid Extremities exam: Present: normal inspection, full ROM, normal capillary refill. Absent: tenderness, pedal edema, joint swelling, calf tenderness Back exam: Present: normal inspection Neurological exam: Present: alert, oriented X3, CN II-XII intact Psychiatric exam: Present: normal affect, normal mood Skin exam: Present: warm, dry, intact, normal color. Absent: rash Course Vital Signs 06/11/22 06/12/22 18:43 00:54 Temperature 98.1 F Pulse Rate 57 L 73 Respiratory 16 19 Rate Blood Pressure 164/123 140/73 O2 Sat by Pulse 99 98 Oximetry - Reevaluation(s) Reevaluation #1: 06/11/22 22:02 Medical record is reviewed Symptoms are minimally improved, patient just getting back to her room from the waiting room Patient is informed of results and questions answered Patient in no distress Reevaluation #2: 06/11/22 22:23 We'll recheck the patient's blood pressure Reevaluation #3: 06/12/22 00:30 Patient reevaluated and is resting comfortably in the room. Patient stating he feels much better. Medical Decision Making - Medical Decision Making Epigastric discomfort with history of pancreatitis. Elevated blood pressure. Patient states this is happened previously with these symptoms. History of cyclic vomiting secondary to marijuana use Patient has had recurrent symptomology such as this previously. Patient previously has had workup by gastroenterology at [facility]. Patient had both an upper and lower GI endoscopy. She has not seen a motion picture equipment machinist here in town. He has no primary care provider. I did reevaluate the patient. He was much improved. Suspect the patient's leukocytosis is related to inflammatory etiology for vomiting. Ultrasound was essentially negative. Patient did have some ketosis. Ordered another bolus of fluid. All findings discussed with the patient. Treatment plan discussed. We'll add on Pepcid to the patient's current regimen of Prilosec. Patient given follow-up with both primary care and gastroenterology. Discussed the patient's high blood pressure. Discussed possibility of cyclic vomiting syndrome as the patient admits to increased alcohol and marijuana use over the past week. Patient was told to return to the ER for any signs or symptoms worsen. Told to return immediately if any other problems arise. All questions answered. Treatment plan discussed. Patient in agreement Every effort has been made to ensure accuracy of this dictation. However, due to the limitations of electronic medical records and dictation devices, errors in charting still occur. Health Outreach Worker Dr. Pierce Repeat vital signs have stabilized. - Lab Data Result diagrams: 06/11/22 20:28 06/11/22 20:28 Lab Results 06/11/22 06/11/22 06/11/22 Range/Units 20:28 20:28 20:28 WBC 14.5 H (3.8-10.6) k/uL RBC 5.32 (4.30-5.90) m/uL Hgb 16.7 (13.0-17.5) gm/dL Hct 50.4 (39.0-53.0) % MCV 94.8 (80.0-100.0) fL MCH 31.3 (25.0-35.0) pg MCHC 33.1 (31.0-37.0) g/dL RDW 12.0 (11.5-15.5) % Plt Count 336 (150-450) k/uL MPV 7.5 Neutrophils % 93 % Lymphocytes % 5 % Monocytes % 2 % Eosinophils % 0 % Basophils % 0 % Neutrophils # 13.4 H (1.3-7.7) k/uL Lymphocytes # 0.7 L (1.0-4.8) k/uL Monocytes # 0.3 (0-1.0) k/uL Eosinophils # 0.0 (0-0.7) k/uL Basophils # 0.0 (0-0.2) k/uL Sodium 136 L (137-145) mmol/L Potassium 4.4 (3.5-5.1) mmol/L Chloride 103 (98-107) mmol/L Carbon Dioxide 20 L (22-30) mmol/L Anion Gap 13 mmol/L BUN 12 (9-20) mg/dL Creatinine 0.78 (0.66-1.25) mg/dL Est GFR (CKD-EPI)AfAm >90 (>60 ml/min/1.73 sqM) Est GFR (CKD-EPI)NonAf >90 (>60 ml/min/1.73 sqM) Glucose 142 H (74-99) mg/dL Calcium 10.2 (8.4-10.2) mg/dL Total Bilirubin 0.9 (0.2-1.3) mg/dL AST 38 (17-59) U/L ALT 29 (4-49) U/L Alkaline Phosphatase 88 (38-126) U/L Troponin I <0.012 (0.000-0.034) ng/mL Total Protein 8.6 H (6.3-8.2) g/dL Albumin 5.3 H (3.5-5.0) g/dL Amylase 84 (30-110) U/L Lipase 95 (23-300) U/L Urine Color Urine Appearance (Clear) Urine pH (5.0-8.0) Ur Specific [place] (1.001-1.035) Urine Protein (Negative) Urine Glucose (UA) (Negative) Urine Ketones (Negative) Urine Blood (Negative) Urine Nitrite (Negative) Urine Bilirubin (Negative) Urine Urobilinogen (<2.0) mg/dL Ur Leukocyte Esterase (Negative) Urine RBC (0-5) /hpf Urine WBC (0-5) /hpf Urine Mucus (None) /hpf 06/11/22 Range/Units 23:28 WBC (3.8-10.6) k/uL RBC (4.30-5.90) m/uL Hgb (13.0-17.5) gm/dL Hct (39.0-53.0) % MCV (80.0-100.0) fL MCH (25.0-35.0) pg MCHC (31.0-37.0) g/dL RDW (11.5-15.5) % Plt Count (150-450) k/uL MPV Neutrophils % % Lymphocytes % % Monocytes % % Eosinophils % % Basophils % % Neutrophils # (1.3-7.7) k/uL Lymphocytes # (1.0-4.8) k/uL Monocytes # (0-1.0) k/uL Eosinophils # (0-0.7) k/uL Basophils # (0-0.2) k/uL Sodium (137-145) mmol/L Potassium (3.5-5.1) mmol/L Chloride (98-107) mmol/L Carbon Dioxide (22-30) mmol/L Anion Gap mmol/L BUN (9-20) mg/dL Creatinine (0.66-1.25) mg/dL Est GFR (CKD-EPI)AfAm (>60 ml/min/1.73 sqM) Est GFR (CKD-EPI)NonAf (>60 ml/min/1.73 sqM) Glucose (74-99) mg/dL Calcium (8.4-10.2) mg/dL Total Bilirubin (0.2-1.3) mg/dL AST (17-59) U/L ALT (4-49) U/L Alkaline Phosphatase (38-126) U/L Troponin I (0.000-0.034) ng/mL Total Protein (6.3-8.2) g/dL Albumin (3.5-5.0) g/dL Amylase (30-110) U/L Lipase (23-300) U/L Urine Color Yellow Urine Appearance Clear (Clear) Urine pH 6.0 (5.0-8.0) Ur Specific [place] 1.027 (1.001-1.035) Urine Protein 1+ H (Negative) Urine Glucose (UA) Negative (Negative) Urine Ketones 4+ H (Negative) Urine Blood Negative (Negative) Urine Nitrite Negative (Negative) Urine Bilirubin Negative (Negative) Urine Urobilinogen <2.0 (<2.0) mg/dL Ur Leukocyte Esterase Negative (Negative) Urine RBC 4 (0-5) /hpf Urine WBC 2 (0-5) /hpf Urine Mucus Many H (None) /hpf Disposition Clinical Impression: Acute gastritis without bleeding, Elevated blood pressure reading Disposition: HOME SELF-CARE Condition: Good Instructions (If sedation given, give patient instructions): Acute Nausea and Vomiting (ED), Hypertension (ED) Additional Instructions: Make an appointment with both the motion picture equipment machinist and the primary care physician. Refrain from taking any NSAIDs. Clear liquid diet for the next 24 hours. Follow-up with your regular physician as directed. Return to the ER immediately if any symptoms worsen, new symptoms arise, or any other problems develop. Prescriptions: Famotidine [Pepcid] 20 mg PO BID #20 tablet Ondansetron Odt [Zofran Odt] 4 mg PO Q6HR PRN #20 tab PRN Reason: Nausea Is patient prescribed a controlled substance at d/c from ED?: No Referrals: Sven Sheppard [STAFF PHYSICIAN] - 1-2 days Zahraa Reza MD [STAFF PHYSICIAN] - 1-2 days Time of Disposition: 00:36
--- NOTE | 2022-06-11 19:34 | XR ---
EXAMINATION TYPE: XR abdomen acute w cxr DATE OF EXAM: 06/11/2022 7:23 PM INDICATION: Patient age:Male; 46 years old; Reason for study: Epigastric abdominal pain. COMPARISON: Radiograph 09/08/2019, 12/26/2017 TECHNIQUE: Two radiographic views of the abdomen (upright and supine) and a frontal chest radiograph were obtained. FINDINGS CHEST: Lungs/Pleura: The lungs are clear. There is no evidence of pleural effusion, focal consolidation or p neumothorax. Mediastinum: Unremarkable. Vasculature: Normal. Heart: Normal in size. Musculoskeletal: The osseous structures are intact. Other findings: No significant. FINDINGS ABDOMEN: Bowel gas pattern: Normal without dilated loops of small or large bowel. Fecal material and gas are d emonstrated throughout the colon and rectum. Abnormal calcifications: Pelvic phleboliths are present.. Musculoskeletal: Normal. Other: None. IMPRESSION: 1. No radiographic evidence for acute abdominal process. 2. No acute cardiopulmonary process
[2022-06-11 20:44] LABS: Basophils % (A) 0 %; Eosinophils % (A) 0 %; HCT 50.4 % (39.0-53.0); HGB 16.7 gm/dL (13.0-17.5); Lymphocytes # (A) 0.7 k/uL (1.0-4.8); Lymphocytes % (A) 5 %; MCH 31.3 pg (25.0-35.0); MCHC 33.1 g/dL (31.0-37.0); MCV 94.8 fL (80.0-100.0); Mean Platelet Volume 7.5; Monocytes # (A) 0.3 k/uL (0-1.0); Monocytes % (A) 2 %; Neutrophils # (A) 13.4 k/uL (1.3-7.7); Neutrophils % (A) 93 %; Platelet Count 336 k/uL (150-450); RBC 5.32 m/uL (4.30-5.90); WBC 14.5 k/uL (3.8-10.6)
[2022-06-11 20:55] LABS: ALT 29 U/L (4-49); AST 38 U/L (17-59); African American GFR (CKD) >90 (>60 ml/min/1.73 sqM); Albumin 5.3 g/dL (3.5-5.0); Alkaline Phosphatase 88 U/L (38-126); Amylase 84 U/L (30-110); Anion Gap 13 mmol/L; Blood Urea Nitrogen 12 mg/dL (9-20); Calcium 10.2 mg/dL (8.4-10.2); Carbon Dioxide 20 mmol/L (22-30); Chloride 103 mmol/L (98-107); Glucose 142 mg/dL (74-99); Lipase 95 U/L (23-300); Non-African American GFR(CKD) >90 (>60 ml/min/1.73 sqM); Potassium 4.4 mmol/L (3.5-5.1); Sodium 136 mmol/L (137-145); Total Bilirubin 0.9 mg/dL (0.2-1.3); Total Protein 8.6 g/dL (6.3-8.2)
[2022-06-12 00:11] LABS: Appearance,Urine Clear (Clear); Bilirubin,Urine Negative (Negative); Blood,Urine Negative (Negative); Color,Urine Yellow; Glucose,Urine (UA) Negative (Negative); Ketones,Urine 4+ (Negative); Leukocyte Esterase,Urine Negative (Negative); Mucus,Urine Many /hpf; Nitrite,Urine Negative (Negative); Protein,Urine 1+ (Negative); RBC,Urine 4 /hpf (0-5); Specific Gravity,Urine 1.027 (1.001-1.035); Urobilinogen,Urine <2.0 mg/dL (<2.0); WBC,Urine 2 /hpf (0-5)
[2022-06-12] MEDS ORDERED: SODIUM CHLORIDE 0.9% 1,000 ML IV ONE (00:15)
--- NOTE | 2022-06-12 00:23 | US ---
EXAMINATION TYPE: US gallbladder DATE OF EXAM: 06/11/2022 COMPARISON: CT 2018, US 2018 CLINICAL HISTORY: Epigastric abdominal pain. EXAM MEASUREMENTS: Liver Length: 15.3 cm Gallbladder Wall: 0.2 cm CBD: 0.3 cm Right Kidney: 11.2 x 5.6 x 5.3 cm Pancreas: visualized portions wnl, limited by overlying midline bowel gas Liver: course echotexture Gallbladder: wnl Evidence for sonographic Gonzalez's sign: no CBD: visualized portions wnl, limited by overlying bowel gas Right Kidney: wnl IMPRESSION: No hydronephrosis. Negative exam. No gallstones or dilated ducts.
[2022-06-12] MEDS ORDERED: ONDANSETRON 4 MG ODT STARTER PACK 2 TAB BTL PO STA (00:37)
[2022-06-12 00:54] VITALS: BP 140/73; PULSE 73; RESP 19
== END 2022-06-12 01:09 | disposition home or self-care (01) ==
LOC: EC 18:18
DX: K29.00 Acute gastritis without bleeding (principal); R03.0 Elevated blood-pressure reading, without diagnosis of hypertension
CPT/HCPCS: 36415; 93005; 80053; 82150; 83690; 84484; 85025; 74022; 76705; 99284; 96374; 96375; 96361 ×2; J2270; J1200; J2765; J2405; 81001